=== PATIENT | male | born 1945 | race African-American/Black ===

== ENCOUNTER 2020-04-27 15:11 | Outpatient (CLI) | payer MEDICARE ==
--- NOTE | 2020-04-27 15:59 | RAD ---
EXAM: XR Lumbar Spine Min 4 View PROVIDED CLINICAL HISTORY: Low back pain COMPARISON: None FINDINGS: There are 5 nonrib-bearing lumbar-type vertebral bodies. Multilevel osteophytes are seen. There is mi ld narrowing of the L5-S1 intervertebral disc space. The vertebral body heights are within normal limits. No fracture or subluxation is seen involving the lumbar spine. Vascular calcifications and phleboliths overlie the pelvis. Radiopaque suture material is also seen o verlying the pelvis. 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
== END 2020-04-27 15:12 | disposition home or self-care (01) ==
LOC: RAD 15:11
PROVIDERS: ATTEND Internal Medicine Rheumatology
DX: M54.5 Low back pain (principal); M47.816 Spondylosis without myelopathy or radiculopathy, lumbar region
CPT/HCPCS: 72110

== ENCOUNTER 2021-07-15 12:02 | Inpatient (IN) | payer MEDICARE ==
[2021-07-15 12:54] LABS: #Eosinphils 0.3 thou/uL (0.0-0.7); #Lymphocytes 2.1 thou/uL (1.20-3.40); #Monocytes 0.7 thou/uL (0.11-0.59); #Neutrophils 4.5 thou/uL (1.40-6.50); %Basophils 0.6 % (0.0-1.0); %Eosinophils 3.4 % (0.0-10.0); %Lymphocytes 27.1 % (21.0-51.0); %Monocytes 9.3 % (0.0-10.0); %Neutrophils 59.6 % (42.0-75.0); Hemoglobin 14.1 g/dL (14.0-18.0); Mean Corpuscular HGB CONC 34.5 g/dL (32.0-36.0); Mean Corpuscular Hemoglobin 32.6 pg (27.0-31.0); Mean Corpuscular Volume 94.3 fL (78.0-98.0); Mean Platelet Volume 7.4 fL (7.4-10.4); Platelet Count 179 thou/uL (130-400); RBC Distribution Width 12.6 % (11.5-14.5); Red Blood Cell (RBC) Count 4.32 mill/uL (4.70-6.10); White Blood Cell (WBC) Count 7.6 thou/uL (4.8-10.8)
[2021-07-15 13:17] LABS: ALT (SGPT) 21 U/L (8-55); AST (SGOT) 27 U/L (5-34); Albumin 3.6 g/dL (3.4-4.8); Alkaline Phosphatase 37 U/L (40-110); Anion Gap 15 mmol/L (10-20); BUN (Urea Nitrogen) 25 mg/dL (8.4-25.7); Bilirubin, Total 0.4 mg/dL (0.2-1.2); Calc. Creatinine Clearance 0 mL/min (70-130); Calcium 9.2 mg/dL (7.8-10.44); Carbon Dioxide 24 mmol/L (23-31); Chloride 104 mmol/L (98-107); Globulin 3.3 g/dL (2.4-3.5); Glucose 84 mg/dL (83-110); Lipase 56 U/L (8-78); Magnesium 1.8 mg/dL (1.6-2.6); Potassium 4.7 mmol/L (3.5-5.1); Protein, Total 6.9 g/dL (5.8-8.1); Sodium 138 mmol/L (136-145)
[2021-07-15] MEDS ORDERED: Nitroglycerin 2% Ointment 1 INCH/1 GM Packet ONE (13:30)
[2021-07-15] MEDS ORDERED: Aspirin Chewable 81 MG TAB ONE (13:30)
[2021-07-15] MEDS ORDERED: Dextrose 5% in Water 1,000 ML IV PRN (14:06)
[2021-07-15] MEDS ORDERED: Dextrose 50% Abboject 50 ML SYRINGE SLOW IVP PRN (14:06)
[2021-07-15] MEDS ORDERED: Ondansetron PF 4 MG/2 ML Vial IVP PRN (14:06)
[2021-07-15] MEDS ORDERED: Calcium Carbonate 500 MG ChewTAB PO PRN (14:06)
[2021-07-15] MEDS ORDERED: Ondansetron ODT 4 MG TAB PO PRN (14:06)
[2021-07-15] MEDS ORDERED: Acetaminophen 325 MG TAB PO PRN ×2 (14:06→17:23)
[2021-07-15] MEDS ORDERED: HumaLOG 300 UNITS/3 ML VIAL SC PRN (14:06)
[2021-07-15] MEDS ORDERED: Acetaminophen 650 MG Suppository PR PRN (14:06)
[2021-07-15 14:58] LABS: Troponin I 0.014 ng/mL (< 0.028)
[2021-07-15] MEDS ORDERED: Heparin 5,000 UNITS/ML VIAL SC SCH (15:00)
[2021-07-15] MEDS ORDERED: Acetaminophen 325 MG TAB ONE (15:17)
[2021-07-15] MEDS ORDERED: HOLD HYPOGLYCEMIC MEDS AM OF CATH FS SCH (17:15)
[2021-07-15 17:16] LABS: SARS-CoV-2 NAA Rapid Test Not Detected (NotDetected)
[2021-07-15] MEDS ORDERED: Nitroglycerin 0.4 MG TAB 1 EACH SL PRN (17:20)
[2021-07-15] MEDS ORDERED: Zolpidem Tartrate 5 MG TAB PO PRN (17:22)
[2021-07-15] MEDS ORDERED: Milk Of Magnesia 30 ML UDCUP PO PRN (17:23)
[2021-07-15] MEDS ORDERED: Aspirin 81 mg Enteric Coated Tablet PO SCH (17:30)
[2021-07-15] MEDS ORDERED: Acetaminophen/Codeine 30-300mg Tablet PO PRN (17:32)
[2021-07-15] MEDS ORDERED: Nitroglycerin 0.4 MG TAB (25 Tab Bottle) SL PRN (17:35)
[2021-07-15] MEDS ORDERED: REPATHA 140 MG/ML SC SCH (17:45)
[2021-07-15 18:06] LABS: Troponin I 0.022 ng/mL (< 0.028)
[2021-07-15] MEDS: Sodium Chloride 0.9% 1,000 ML IV SCH (18:23)
[2021-07-15] MEDS ORDERED: HumuLIN 70/30 (300 UNITS/3 ML VIAL) SC SCH (21:00)
[2021-07-15] MEDS: HumuLIN 70/30 (300 UNITS/3 ML VIAL) SC SCH (21:26)
[2021-07-15] MEDS: Zolpidem Tartrate 5 MG TAB PO SCH (21:27)
[2021-07-15] MEDS: Docusate 100 MG CAP PO SCH (21:27)
[2021-07-15] MEDS ORDERED: DC ENOXAPARIN NIGHT BEFORE CATH FS SCH (22:00)
[2021-07-16] MEDS: Sodium Chloride 0.9% 1,000 ML IV SCH ×2 (02:30→15:12)
[2021-07-16 05:14] LABS: Anion Gap 12 mmol/L (10-20); BUN (Urea Nitrogen) 28 mg/dL (8.4-25.7); Calc. Creatinine Clearance 48 mL/min (70-130); Calcium 8.9 mg/dL (7.8-10.44); Carbon Dioxide 25 mmol/L (23-31); Cardiac Risk 4.3 (Less than 4.5); Chloride 104 mmol/L (98-107); Cholesterol 121 mg/dl (< 200 Desired); Glucose 82 mg/dL (83-110); HDL Cholesterol 28 mg/dL (>60 Neg Risk); LDL Cholesterol, Calculated 52 mg/dL; Potassium 4.6 mmol/L (3.5-5.1); Sodium 136 mmol/L (136-145); Triglycerides 203 mg/dL (Less than 150)
[2021-07-16] MEDS: hydrALAZINE 25 MG TAB PO SCH ×3 (05:14→17:12)
[2021-07-16] MEDS: Metoprolol Tartrate 100 MG TAB PO SCH ×2 (05:15→17:12)
[2021-07-16] MEDS: Citalopram 20 MG TAB PO SCH (05:16)
[2021-07-16] MEDS: Icosapent Ethyl 1 GM CAPSULE PO SCH ×2 (05:16→17:12)
[2021-07-16] MEDS: Aspirin 81 mg Enteric Coated Tablet PO SCH (05:16)
[2021-07-16] MEDS: Losartan 25 MG TAB PO SCH (05:16)
[2021-07-16] MEDS: Docusate 100 MG CAP PO SCH ×2 (05:16→21:06)
[2021-07-16] MEDS ORDERED: Lidocaine 1% (PF) 30 ML VIAL ONE (06:39)
[2021-07-16] MEDS ORDERED: Heparin 10,000 UNITS/ 10 ML VIAL ONE (06:43)
[2021-07-16] MEDS ORDERED: Fentanyl 100 MCG/2 ML VIAL ONE (07:06)
[2021-07-16] MEDS ORDERED: Midazolam HCl 2 mg/2 ml Vial ONE (07:06)
[2021-07-16] MEDS ORDERED: Protamine Sulfate 50 MG/5 ML VIAL ONE (07:41)
[2021-07-16] MEDS ORDERED: Nitroglycerin 4.9 GM Bottle ONE (07:42)
[2021-07-16] MEDS ORDERED: Sodium Chloride 0.9% 200 ML IV PRN (08:22)
[2021-07-16] MEDS ORDERED: Acetaminophen/Codeine 30-300mg Tablet PO PRN (08:22)
[2021-07-16] MEDS ORDERED: Nitroglycerin 0.4 MG TAB (25 Tab Bottle) SL PRN (08:22)
[2021-07-16] MEDS ORDERED: Sodium Chloride 0.9% 1,000 ML IV SCH (08:30)
[2021-07-16] MEDS: HumuLIN 70/30 (300 UNITS/3 ML VIAL) SC SCH ×2 (08:47→21:09)
[2021-07-16] MEDS ORDERED: VICTOZA SC SCH (09:00)
[2021-07-16] MEDS ORDERED: cloNIDine 0.2mg/24 Hour PATCH TD SCH (09:00)
[2021-07-16] MEDS ORDERED: Ergocalciferol 1.25 MG(50,000 UNITS) CAP PO SCH (09:00)
[2021-07-16] MEDS ORDERED: Iopamidol 370 76% 100 ML VIAL ONE (10:54)
[2021-07-16] MEDS: Acetaminophen/Codeine 30-300mg Tablet PO PRN ×3 (11:37→21:11)
[2021-07-16] MEDS ORDERED: cloNIDine 0.1 MG TAB PO SCH (14:00)
[2021-07-16] MEDS: Zolpidem Tartrate 5 MG TAB PO SCH (21:06)
[2021-07-17] MEDS: Acetaminophen/Codeine 30-300mg Tablet PO PRN ×5 (04:45→23:11)
[2021-07-17 05:26] LABS: Anion Gap 12 mmol/L (10-20); BUN (Urea Nitrogen) 26 mg/dL (8.4-25.7); Calc. Creatinine Clearance 52 mL/min (70-130); Carbon Dioxide 23 mmol/L (23-31); Chloride 104 mmol/L (98-107); Potassium 4.1 mmol/L (3.5-5.1); Sodium 135 mmol/L (136-145)
[2021-07-17 05:38] LABS: Glucose 41 mg/dL (83-110)
[2021-07-17] MEDS: Sodium Chloride 0.9% 1,000 ML IV SCH ×2 (05:52→14:43)
[2021-07-17] MEDS: Docusate 100 MG CAP PO SCH ×2 (09:36→22:05)
[2021-07-17] MEDS: hydrALAZINE 25 MG TAB PO SCH ×3 (09:37→17:01)
[2021-07-17] MEDS: Citalopram 20 MG TAB PO SCH (09:37)
[2021-07-17] MEDS: Losartan 25 MG TAB PO SCH (09:37)
[2021-07-17] MEDS: Icosapent Ethyl 1 GM CAPSULE PO SCH ×2 (09:38→17:01)
[2021-07-17] MEDS: Aspirin 81 mg Enteric Coated Tablet PO SCH (09:38)
[2021-07-17] MEDS: HumuLIN 70/30 (300 UNITS/3 ML VIAL) SC SCH ×2 (09:48→20:50)
[2021-07-17] MEDS: Metoprolol Tartrate 100 MG TAB PO SCH ×2 (10:36→17:01)
[2021-07-17] MEDS ORDERED: Communication Order-Pharmacy FS SCH (12:21)
[2021-07-17] MEDS ORDERED: Diazepam 5 MG TAB PO PRN (12:21)
[2021-07-17] MEDS ORDERED: Milk Of Magnesia 30 ML UDCUP PO PRN (12:45)
[2021-07-17] MEDS ORDERED: hydrALAZINE 20 MG/ML VIAL SLOW IVP PRN (21:32)
[2021-07-17] MEDS: Zolpidem Tartrate 5 MG TAB PO SCH (22:05)
[2021-07-18] MEDS: Sodium Chloride 0.9% 1,000 ML IV SCH (04:04)
[2021-07-18] MEDS: Acetaminophen/Codeine 30-300mg Tablet PO PRN (04:11)
[2021-07-18] MEDS: Metoprolol Tartrate 100 MG TAB PO SCH (05:15)
[2021-07-18] MEDS ORDERED: ceFAZolin 2 GM/Dextrose 50 ML 2 GM in Premix Bag 1 BAG IVPB SCH (06:00)
[2021-07-18] MEDS ORDERED: Bupivacaine PF 0.5% 30 ML VIAL ONE (07:55)
[2021-07-18] MEDS ORDERED: EPINEPHrine 1 MG/ML AMP ONE (07:55)
[2021-07-18] MEDS ORDERED: Dexamethasone 4 mg/ml Vial ONE (07:55)
[2021-07-18] MEDS ORDERED: Albumin 5% 500 ML ONE (07:55)
[2021-07-18] MEDS ORDERED: ceFAZolin 2 GM/DEX 5% 100 ML BAG ONE (08:54)
[2021-07-18] MEDS ORDERED: Fentanyl 250 MCG/5 ML VIAL ONE (09:49)
[2021-07-18] MEDS ORDERED: Midazolam HCl 5 mg/5 ml Vial ONE (09:49)
[2021-07-18] MEDS ORDERED: Heparin 10,000 UNITS/1 ML VIAL 30,000 UNITS in Sodium Chloride 0.9% 1,000 ML FS SCH (10:15)
[2021-07-18] MEDS ORDERED: Heparin 5,000 UNITS/ML VIAL ONE (10:46)
[2021-07-18] MEDS ORDERED: Calcium Chloride 1 GM/10 ML Abboject SYRINGE ONE (10:46)
[2021-07-18] MEDS ORDERED: Ondansetron PF 4 MG/2 ML Vial ONE (10:46)
[2021-07-18] MEDS ORDERED: Protamine Sulfate 250 MG/25 ML VIAL ONE (10:46)
[2021-07-18] MEDS ORDERED: Cardioplegic Soln 1,000 ML BAG ONE (10:46)
[2021-07-18] MEDS ORDERED: Papaverine 60 MG/2 ML VIAL ONE (10:46)
[2021-07-18] MEDS ORDERED: PROPOFOL 200 MG/20 ML VIAL ONE (10:46)
[2021-07-18] MEDS ORDERED: Glycopyrrolate 0.2 MG/ML 5 ML SYRINGE ONE (10:46)
[2021-07-18] MEDS ORDERED: Mannitol 12.5 GM/50 ML ONE (10:46)
[2021-07-18] MEDS ORDERED: Lidocaine 2% PF 100 mg/5 ml Syringe ONE (10:46)
[2021-07-18] MEDS ORDERED: Sodium Bicarb 50 MEQ/50 ML Abboject 8.4% SYRINGE ONE (10:46)
[2021-07-18] MEDS ORDERED: Thrombin 5000 UNITS/5 ML VIAL ONE (10:46)
[2021-07-18] MEDS ORDERED: Nitroglycerin 50 MG/250 ML BOT ONE (10:46)
[2021-07-18] MEDS ORDERED: Heparin 30,000 units/30 ml VIAL ONE (10:46)
[2021-07-18] MEDS ORDERED: Aminocaproic Acid 5 GM/20 ML VIAL ONE (10:46)
[2021-07-18] MEDS ORDERED: Potassium Chloride 60 MEQ/30 ML VIAL ONE (10:46)
[2021-07-18] MEDS ORDERED: Vecuronium 10 MG VIAL ONE (10:46)
[2021-07-18] MEDS ORDERED: Magnesium Sulfate 1 GM/2 ML VIAL ONE (10:46)
[2021-07-18] MEDS ORDERED: Rocuronium Bromide 10 MG/ML (10ML VIAL) ONE (10:46)
[2021-07-18] MEDS ORDERED: Insulin Regular 300 UNITS/3 ML VIAL ONE (13:35)
[2021-07-18] MEDS: Insulin Regular 300 UNITS/3 ML VIAL SC PRN (14:50)
[2021-07-18] MEDS ORDERED: Nitroglycerin 50 MG/250 ML BOT 250 ML ONE (14:55)
[2021-07-18] MEDS ORDERED: Ondansetron PF 4 MG/2 ML Vial IVP PRN (14:58)
[2021-07-18] MEDS ORDERED: Fentanyl 100 MCG/2 ML VIAL SLOW IVP PRN (14:58)
[2021-07-18] MEDS ORDERED: Bisacodyl 5 MG TAB PO PRN (14:58)
[2021-07-18] MEDS ORDERED: Mag-Al 1200 mg/1200 mg/30 ML UDCUP PO PRN (14:58)
[2021-07-18] MEDS ORDERED: Norepinephrine 8 MG/0.9% NS 250 ML IVPB PRN (14:58)
[2021-07-18] MEDS ORDERED: Promethazine HCl 25 MG/ML VIAL IM PRN (14:58)
[2021-07-18] MEDS ORDERED: Nitroglycerin 50 MG/250 ML BOT 250 ML IVPB PRN (14:58)
[2021-07-18] MEDS ORDERED: D5 1/2 NS w/20 mEq KCL 1,000 ML IV SCH (14:58)
[2021-07-18] MEDS ORDERED: traMADol HCl 50 MG TAB PO PRN (14:58)
[2021-07-18] MEDS ORDERED: Potassium Chloride 20 MEQ/100 ML PREMIX BAG IVPB PRN (14:58)
[2021-07-18] MEDS ORDERED: Hetastarch 6% 500 ML 500 ML IVPB PRN (14:58)
[2021-07-18] MEDS ORDERED: niCARdipine 25 MG in Sodium Chloride 0.9% 250 ML 240 ML IVPB PRN (14:58)
[2021-07-18] MEDS ORDERED: Post-Op Insulin Drip Protocol IVPB ONE (14:58)
[2021-07-18] MEDS ORDERED: Bisacodyl 10 MG SUPP PR PRN (14:58)
[2021-07-18] MEDS ORDERED: Guaifenesin DM 100-10/5 ML UDCUP PO PRN (14:58)
[2021-07-18 15:21] LABS: Base Excess (BEa) -1.9 mEq/L (-2.0 to +3.0); Calcium, Ionized (arterial) 1.09 mmol/L (1.12-1.30); Carboxyhemoglobin (COHb) 0.6 gm% (0.0-3.0); Hemoglobin (Hb) 12.8 g/dL (14.0-18.0); O2 Tension (PaO2), arterial 144.9 mmHg (> 70.0); Potassium - ABG Lab 4.69 mmol/L (3.70-5.30); pH, Arterial 7.34 (7.35-7.45)
[2021-07-18 15:22] LABS: Puncture Site Arterial Line
[2021-07-18 15:39] LABS: #Basophils 0.1 thou/uL (0.0-0.2); #Eosinphils 0.4 thou/uL (0.0-0.7); #Lymphocytes 2.4 thou/uL (1.20-3.40); #Monocytes 1.1 thou/uL (0.11-0.59); #Neutrophils 15.9 thou/uL (1.40-6.50); %Basophils 0.7 % (0.0-1.0); %Eosinophils 1.8 % (0.0-10.0); %Monocytes 5.6 % (0.0-10.0); %Neutrophils 79.9 % (42.0-75.0); Hemoglobin 11.7 g/dL (14.0-18.0); Mean Corpuscular HGB CONC 32.8 g/dL (32.0-36.0); Mean Corpuscular Hemoglobin 31.8 pg (27.0-31.0); Mean Platelet Volume 7.4 fL (7.4-10.4); Platelet Count 147 thou/uL (130-400); RBC Distribution Width 12.8 % (11.5-14.5); Red Blood Cell (RBC) Count 3.67 mill/uL (4.70-6.10); White Blood Cell (WBC) Count 19.9 thou/uL (4.8-10.8)
[2021-07-18 15:57] LABS: Anion Gap 10 mmol/L (10-20); BUN (Urea Nitrogen) 21 mg/dL (8.4-25.7); Calc. Creatinine Clearance 54 mL/min (70-130); Calcium 7.7 mg/dL (7.8-10.44); Carbon Dioxide 24 mmol/L (23-31); Chloride 107 mmol/L (98-107); Glucose 139 mg/dL (83-110); Potassium 4.8 mmol/L (3.5-5.1); Sodium 136 mmol/L (136-145)
[2021-07-18] MEDS ORDERED: Dextrose 5% in Water 1,000 ML IV PRN (16:00)
[2021-07-18] MEDS ORDERED: Magnesium 2 GM/50 ML 2 GM in Premix Bag 1 BAG IVPB SCH (16:00)
[2021-07-18] MEDS ORDERED: Dextrose 50% Abboject 50 ML SYRINGE SLOW IVP PRN (16:00)
[2021-07-18] MEDS ORDERED: HUMULIN R 100 UNITS in Sodium Chloride 0.9% 100 ML IVPB SCH (16:00)
[2021-07-18] MEDS ORDERED: Lantus 1000 UNITS/10 ML VIAL SC PRN (16:00)
[2021-07-18] MEDS ORDERED: Morphine 4 MG/ML VIAL SLOW IVP PRN (16:05)
[2021-07-18 16:11] LABS: INR-International Normal Ratio 1.3; Prothrombin Time 16.4 sec (12.0-14.7)
[2021-07-18] MEDS: ceFAZolin Sodium/D5W 2 GM in Premix Bag 1 BAG IVPB SCH (19:31)
[2021-07-18] MEDS ORDERED: Famotidine/PF 20 mg/2ml Vial SLOW IVP SCH (21:00)
[2021-07-18 21:12] LABS: Hemoglobin 12.4 g/dL (14.0-18.0)
[2021-07-18 21:16] LABS: Actual Bicarbonate (HCO3a) 21.9 mEq/L (22-28); Base Excess (BEa) -4.8 mEq/L (-2.0 to +3.0); CO2 Tension 46.5 mmHg (35.0-45.0); Calcium, Ionized (arterial) 1.09 mmol/L (1.12-1.30); Carboxyhemoglobin (COHb) 0.8 gm% (0.0-3.0); O2 Tension (PaO2), arterial 143.5 mmHg (> 70.0); Potassium - ABG Lab 4.63 mmol/L (3.70-5.30); pH, Arterial 7.29 (7.35-7.45)
[2021-07-18 21:17] LABS: Puncture Site Arterial Line
[2021-07-18 21:18] LABS: ALV-art Gradient 83.575 mmHg (0-20)
[2021-07-18] MEDS: Atorvastatin Calcium 40 MG TAB PO SCH (21:40)
[2021-07-18] MEDS: Fentanyl 100 MCG/2 ML VIAL SLOW IVP PRN (21:58)
[2021-07-18] MEDS: traMADol HCl 50 MG TAB PO PRN (23:08)
[2021-07-19] MEDS: Fentanyl 100 MCG/2 ML VIAL SLOW IVP PRN ×7 (00:07→17:22)
[2021-07-19] MEDS: ceFAZolin Sodium/D5W 2 GM in Premix Bag 1 BAG IVPB SCH ×2 (03:50→10:32)
[2021-07-19] MEDS: Acetaminophen 325 MG TAB PO PRN (04:14)
[2021-07-19 04:54] LABS: #Lymphocytes 0.7 thou/uL (1.20-3.40); #Monocytes 0.8 thou/uL (0.11-0.59); #Neutrophils 13.1 thou/uL (1.40-6.50); %Basophils 0.1 % (0.0-1.0); %Eosinophils 0.1 % (0.0-10.0); %Lymphocytes 4.9 % (21.0-51.0); %Monocytes 5.4 % (0.0-10.0); %Neutrophils 89.5 % (42.0-75.0); Hemoglobin 11.8 g/dL (14.0-18.0); Mean Corpuscular HGB CONC 33.2 g/dL (32.0-36.0); Mean Corpuscular Hemoglobin 32.2 pg (27.0-31.0); Mean Platelet Volume 8.1 fL (7.4-10.4); Platelet Count 177 thou/uL (130-400); Red Blood Cell (RBC) Count 3.66 mill/uL (4.70-6.10); White Blood Cell (WBC) Count 14.6 thou/uL (4.8-10.8)
[2021-07-19] MEDS: traMADol HCl 50 MG TAB PO PRN ×2 (07:48→13:03)
[2021-07-19] MEDS: Magnesium 2 GM/50 ML 2 GM in Premix Bag 1 BAG IVPB SCH (08:56)
[2021-07-19] MEDS: Citalopram 20 MG TAB PO SCH (08:56)
[2021-07-19] MEDS: Metoprolol Tartrate 50 MG TAB PO SCH ×2 (08:57→20:06)
[2021-07-19] MEDS: Aspirin 325 MG TAB PO SCH (09:00)
[2021-07-19] MEDS: Insulin Regular 300 UNITS/3 ML VIAL SC PRN ×2 (15:26→20:24)
[2021-07-19] MEDS: Acetaminophen/Codeine 30-300mg Tablet PO PRN ×2 (15:31→20:00)
[2021-07-19] MEDS: hydrALAZINE 25 MG TAB PO SCH (20:05)
[2021-07-19] MEDS: Atorvastatin Calcium 40 MG TAB PO SCH (20:05)
[2021-07-19] MEDS: hydrALAZINE 20 MG/ML VIAL SLOW IVP PRN (22:09)
[2021-07-20] MEDS: Acetaminophen/Codeine 30-300mg Tablet PO PRN ×5 (00:13→21:12)
[2021-07-20] MEDS: hydrALAZINE 20 MG/ML VIAL SLOW IVP PRN ×2 (03:40→10:16)
[2021-07-20 04:31] LABS: Anion Gap 13 mmol/L (10-20); BUN (Urea Nitrogen) 35 mg/dL (8.4-25.7); Calc. Creatinine Clearance 40 mL/min (70-130); Calcium 8.2 mg/dL (7.8-10.44); Carbon Dioxide 25 mmol/L (23-31); Chloride 100 mmol/L (98-107); Glucose 318 mg/dL (83-110); Potassium 4.5 mmol/L (3.5-5.1); Sodium 133 mmol/L (136-145)
[2021-07-20 05:13] LABS: Band 19 % (5-11); Hemoglobin 12.6 g/dL (14.0-18.0); Lymphocytes 6 % (21-51); MDiff Complete? YES; Mean Corpuscular HGB CONC 32.1 g/dL (32.0-36.0); Mean Corpuscular Hemoglobin 31.1 pg (27.0-31.0); Mean Platelet Volume 7.7 fL (7.4-10.4); Monocytes 5 % (0-10); Neutrophil 70 % (42-75); Platelet Count 191 thou/uL (130-400); RBC Distribution Width 12.6 % (11.5-14.5); Red Blood Cell (RBC) Count 4.06 mill/uL (4.70-6.10); White Blood Cell (WBC) Count 23.8 thou/uL (4.8-10.8)
[2021-07-20] MEDS: Insulin Regular 300 UNITS/3 ML VIAL SC PRN ×4 (05:48→21:18)
[2021-07-20] MEDS: hydrALAZINE 25 MG TAB PO SCH ×2 (08:05→21:11)
[2021-07-20] MEDS: Citalopram 20 MG TAB PO SCH (08:05)
[2021-07-20] MEDS: Magnesium 2 GM/50 ML 2 GM in Premix Bag 1 BAG IVPB SCH (09:31)
[2021-07-20] MEDS: Aspirin 325 MG TAB PO SCH (10:36)
[2021-07-20] MEDS: Metoprolol Tartrate 50 MG TAB PO SCH (10:37)
[2021-07-20] MEDS ORDERED: Bisacodyl 10 MG SUPP PR PRN (14:17)
[2021-07-20] MEDS ORDERED: Mineral Oil ENEMA PR PRN (14:17)
[2021-07-20] MEDS ORDERED: Nitroglycerin 0.4 MG TAB (25 Tab Bottle) SL PRN (14:17)
[2021-07-20] MEDS ORDERED: Guaifenesin DM 100-10/5 ML UDCUP PO PRN (14:17)
[2021-07-20] MEDS ORDERED: Mag-Al 1200 mg/1200 mg/30 ML UDCUP PO PRN (14:17)
[2021-07-20] MEDS ORDERED: diphenhydrAMINE 25 MG CAP PO PRN (14:17)
[2021-07-20] MEDS ORDERED: Milk Of Magnesia 30 ML UDCUP PO PRN (14:17)
[2021-07-20] MEDS ORDERED: Bisacodyl 5 MG TAB PO PRN (14:17)
[2021-07-20] MEDS ORDERED: Losartan 25 MG TAB PO SCH (14:45)
[2021-07-20] MEDS: Metoprolol Tartrate 100 MG TAB PO SCH (21:10)
[2021-07-20] MEDS: Zolpidem Tartrate 5 MG TAB PO PRN (21:10)
[2021-07-20] MEDS: Atorvastatin Calcium 40 MG TAB PO SCH (21:12)
[2021-07-21] MEDS: Diltiazem HCl 125 MG, Admixture Fee 1 EACH in Sodium Chloride 0.9% 100 ML IVPB SCH (04:38)
[2021-07-21 05:23] LABS: Anion Gap 13 mmol/L (10-20); BUN (Urea Nitrogen) 51 mg/dL (8.4-25.7); Calc. Creatinine Clearance 31 mL/min (70-130); Calcium 8.3 mg/dL (7.8-10.44); Carbon Dioxide 22 mmol/L (23-31); Chloride 104 mmol/L (98-107); Glucose 223 mg/dL (83-110); Potassium 4.1 mmol/L (3.5-5.1); Sodium 135 mmol/L (136-145)
[2021-07-21] MEDS: Insulin Regular 300 UNITS/3 ML VIAL SC PRN ×3 (06:11→18:42)
[2021-07-21] MEDS ORDERED: Losartan 25 MG TAB PO SCH (09:00)
[2021-07-21] MEDS ORDERED: Furosemide 40 MG TAB PO SCH (09:00)
[2021-07-21] MEDS: hydrALAZINE 25 MG TAB PO SCH ×2 (10:14→21:43)
[2021-07-21] MEDS: Metoprolol Tartrate 100 MG TAB PO SCH ×2 (10:14→21:43)
[2021-07-21] MEDS: Aspirin 325 MG TAB PO SCH (10:14)
[2021-07-21] MEDS: Citalopram 20 MG TAB PO SCH (10:15)
[2021-07-21] MEDS: HumuLIN 70/30 (300 UNITS/3 ML VIAL) SC SCH ×2 (17:23→21:50)
[2021-07-21] MEDS: Atorvastatin Calcium 40 MG TAB PO SCH (21:43)
[2021-07-21] MEDS: Acetaminophen/Codeine 30-300mg Tablet PO PRN (21:46)
[2021-07-21] MEDS: Zolpidem Tartrate 5 MG TAB PO PRN (23:17)
[2021-07-22] MEDS: Diltiazem HCl 125 MG, Admixture Fee 1 EACH in Sodium Chloride 0.9% 100 ML IVPB SCH (00:05)
[2021-07-22] MEDS: Insulin Regular 300 UNITS/3 ML VIAL SC PRN ×2 (06:31→11:47)
[2021-07-22 08:07] LABS: Anion Gap 15 mmol/L (10-20); BUN (Urea Nitrogen) 77 mg/dL (8.4-25.7); Calc. Creatinine Clearance 25 mL/min (70-130); Calcium 8.2 mg/dL (7.8-10.44); Carbon Dioxide 20 mmol/L (23-31); Chloride 105 mmol/L (98-107); Glucose 245 mg/dL (83-110); Potassium 4.2 mmol/L (3.5-5.1); Sodium 136 mmol/L (136-145)
[2021-07-22] MEDS: Acetaminophen/Codeine 30-300mg Tablet PO PRN (08:35)
[2021-07-22] MEDS: Metoprolol Tartrate 100 MG TAB PO SCH ×2 (08:36→21:00)
[2021-07-22] MEDS: Citalopram 20 MG TAB PO SCH (08:36)
[2021-07-22] MEDS: Aspirin 325 MG TAB PO SCH (08:36)
[2021-07-22] MEDS: HumuLIN 70/30 (300 UNITS/3 ML VIAL) SC SCH ×2 (08:36→20:59)
[2021-07-22] MEDS: hydrALAZINE 25 MG TAB PO SCH ×2 (08:36→21:00)
[2021-07-22] MEDS ORDERED: Dronedarone HCl 400 MG TAB PO SCH (09:45)
[2021-07-22] MEDS: Dronedarone HCl 400 MG TAB PO SCH (17:31)
[2021-07-22] MEDS: Atorvastatin Calcium 40 MG TAB PO SCH (20:58)
[2021-07-22] MEDS: Acetaminophen 325 MG TAB PO PRN (21:01)
[2021-07-23 05:26] LABS: Anion Gap 13 mmol/L (10-20); BUN (Urea Nitrogen) 81 mg/dL (8.4-25.7); Calc. Creatinine Clearance 27 mL/min (70-130); Calcium 7.6 mg/dL (7.8-10.44); Carbon Dioxide 19 mmol/L (23-31); Chloride 107 mmol/L (98-107); Glucose 162 mg/dL (83-110); Sodium 135 mmol/L (136-145)
[2021-07-23] MEDS: HumuLIN 70/30 (300 UNITS/3 ML VIAL) SC SCH ×2 (08:15→21:02)
[2021-07-23] MEDS: Citalopram 20 MG TAB PO SCH (08:16)
[2021-07-23] MEDS: hydrALAZINE 25 MG TAB PO SCH ×2 (08:16→21:03)
[2021-07-23] MEDS: Dronedarone HCl 400 MG TAB PO SCH ×2 (08:16→17:10)
[2021-07-23] MEDS: Metoprolol Tartrate 100 MG TAB PO SCH ×2 (08:16→21:03)
[2021-07-23] MEDS: Aspirin 325 MG TAB PO SCH (08:16)
[2021-07-23] MEDS: cloNIDine 0.2mg/24 Hour PATCH TD SCH (08:16)
[2021-07-23] MEDS: Acetaminophen/Codeine 30-300mg Tablet PO PRN ×2 (08:17→21:07)
[2021-07-23] MEDS ORDERED: Enoxaparin Sodium 100 MG/ML SYRINGE SC SCH (10:00)
[2021-07-23] MEDS ORDERED: Enoxaparin Sodium 120 MG/0.8 ML SYRINGE SC SCH (10:00)
[2021-07-23] MEDS: Insulin Regular 300 UNITS/3 ML VIAL SC PRN ×2 (11:28→17:10)
[2021-07-23 11:36] LABS: SARS-CoV-2 PCR by NAA Not Detected (NotDetected)
[2021-07-23] MEDS: Atorvastatin Calcium 40 MG TAB PO SCH (21:02)
[2021-07-24] MEDS: hydrALAZINE 20 MG/ML VIAL SLOW IVP PRN (05:40)
[2021-07-24] MEDS: Dronedarone HCl 400 MG TAB PO SCH ×2 (08:10→16:27)
[2021-07-24] MEDS: Metoprolol Tartrate 100 MG TAB PO SCH ×2 (08:10→20:51)
[2021-07-24] MEDS: Citalopram 20 MG TAB PO SCH (08:10)
[2021-07-24] MEDS: HumuLIN 70/30 (300 UNITS/3 ML VIAL) SC SCH ×2 (08:10→20:52)
[2021-07-24] MEDS: Aspirin 325 MG TAB PO SCH (08:10)
[2021-07-24] MEDS: hydrALAZINE 25 MG TAB PO SCH ×2 (08:10→20:51)
[2021-07-24] MEDS: Acetaminophen/Codeine 30-300mg Tablet PO PRN ×3 (08:11→20:51)
[2021-07-24] MEDS ORDERED: Enoxaparin Sodium 120 MG/0.8 ML SYRINGE SC SCH (09:00)
[2021-07-24] MEDS ORDERED: hydrALAZINE 20 MG/ML VIAL SLOW IVP PRN (09:18)
[2021-07-24] MEDS ORDERED: hydrALAZINE 20 MG/ML VIAL SLOW IVP SCH (09:30)
[2021-07-24] MEDS: Insulin Regular 300 UNITS/3 ML VIAL SC PRN ×2 (11:55→16:33)
[2021-07-24 12:08] LABS: Anion Gap 12 mmol/L (10-20); BUN (Urea Nitrogen) 74 mg/dL (8.4-25.7); Calc. Creatinine Clearance 34 mL/min (70-130); Calcium 7.4 mg/dL (7.8-10.44); Carbon Dioxide 22 mmol/L (23-31); Chloride 109 mmol/L (98-107); Glucose 229 mg/dL (83-110); Potassium 4.1 mmol/L (3.5-5.1); Sodium 139 mmol/L (136-145)
[2021-07-24] MEDS ORDERED: Diltiazem HCl 125 MG, Admixture Fee 1 EACH in Sodium Chloride 0.9% 100 ML IVPB SCH (13:30)
[2021-07-24 15:58] VITALS: BMI 39.9
[2021-07-24] MEDS: Atorvastatin Calcium 40 MG TAB PO SCH (20:51)
[2021-07-25] MEDS: Acetaminophen/Codeine 30-300mg Tablet PO PRN ×4 (03:25→20:22)
[2021-07-25 05:25] LABS: Anion Gap 11 mmol/L (10-20); BUN (Urea Nitrogen) 64 mg/dL (8.4-25.7); Calc. Creatinine Clearance 40 mL/min (70-130); Calcium 7.3 mg/dL (7.8-10.44); Carbon Dioxide 23 mmol/L (23-31); Chloride 110 mmol/L (98-107); Glucose 159 mg/dL (83-110); Sodium 140 mmol/L (136-145)
[2021-07-25] MEDS ORDERED: Apixaban 5 MG TAB PO SCH (09:00)
[2021-07-25] MEDS: Aspirin 81 mg Enteric Coated Tablet PO SCH (09:36)
[2021-07-25] MEDS: HumuLIN 70/30 (300 UNITS/3 ML VIAL) SC SCH ×2 (09:36→20:23)
[2021-07-25] MEDS: Dronedarone HCl 400 MG TAB PO SCH ×2 (09:37→15:53)
[2021-07-25] MEDS: Metoprolol Tartrate 100 MG TAB PO SCH ×2 (09:37→20:23)
[2021-07-25] MEDS: hydrALAZINE 25 MG TAB PO SCH ×2 (09:37→20:23)
[2021-07-25] MEDS: Citalopram 20 MG TAB PO SCH (09:37)
[2021-07-25] MEDS: Insulin Regular 300 UNITS/3 ML VIAL SC PRN ×3 (11:05→20:40)
[2021-07-25] MEDS: Atorvastatin Calcium 40 MG TAB PO SCH (20:23)
[2021-07-26] MEDS: Acetaminophen/Codeine 30-300mg Tablet PO PRN ×4 (03:14→21:04)
[2021-07-26 04:45] LABS: #Eosinphils 0.7 thou/uL (0.0-0.7); #Lymphocytes 1.3 thou/uL (1.20-3.40); #Monocytes 1.8 thou/uL (0.11-0.59); %Basophils 0.1 % (0.0-1.0); %Eosinophils 3.6 % (0.0-10.0); %Monocytes 9.7 % (0.0-10.0); %Neutrophils 79.6 % (42.0-75.0); Mean Corpuscular HGB CONC 32.4 g/dL (32.0-36.0); Mean Corpuscular Hemoglobin 32.1 pg (27.0-31.0); Mean Corpuscular Volume 99.1 fL (78.0-98.0); Mean Platelet Volume 6.9 fL (7.4-10.4); Platelet Count 306 thou/uL (130-400); RBC Distribution Width 12.7 % (11.5-14.5); Red Blood Cell (RBC) Count 3.41 mill/uL (4.70-6.10); White Blood Cell (WBC) Count 18.9 thou/uL (4.8-10.8)
[2021-07-26 04:58] LABS: Anion Gap 13 mmol/L (10-20); BUN (Urea Nitrogen) 56 mg/dL (8.4-25.7); Calc. Creatinine Clearance 43 mL/min (70-130); Calcium 7.5 mg/dL (7.8-10.44); Carbon Dioxide 22 mmol/L (23-31); Chloride 111 mmol/L (98-107); Glucose 121 mg/dL (83-110); Potassium 4.5 mmol/L (3.5-5.1); Sodium 141 mmol/L (136-145)
[2021-07-26] MEDS: Insulin Regular 300 UNITS/3 ML VIAL SC PRN ×4 (05:30→21:06)
[2021-07-26] MEDS: Dronedarone HCl 400 MG TAB PO SCH ×2 (09:24→16:35)
[2021-07-26] MEDS: hydrALAZINE 25 MG TAB PO SCH ×3 (09:24→21:02)
[2021-07-26] MEDS: Citalopram 20 MG TAB PO SCH (09:24)
[2021-07-26] MEDS: Metoprolol Tartrate 100 MG TAB PO SCH ×2 (09:24→21:05)
[2021-07-26] MEDS: Aspirin 81 mg Enteric Coated Tablet PO SCH (09:24)
[2021-07-26] MEDS: HumuLIN 70/30 (300 UNITS/3 ML VIAL) SC SCH ×2 (09:24→21:07)
[2021-07-26] MEDS: Polyethylene Glycol 3350 17 GM Packet PO SCH (09:25)
[2021-07-26] MEDS ORDERED: hydrALAZINE 25 MG TAB PO SCH (10:45)
[2021-07-26] MEDS: Atorvastatin Calcium 40 MG TAB PO SCH (21:05)
[2021-07-27 05:06] LABS: Band 9 % (5-11); Hemoglobin 10.6 g/dL (14.0-18.0); Hypochromia SLIGHT = 6-15 cells (100X) (0-5/hpf); Lymphocytes 19 % (21-51); MDiff Complete? YES; Mean Corpuscular Hemoglobin 32.2 pg (27.0-31.0); Mean Corpuscular Volume 97.5 fL (78.0-98.0); Mean Platelet Volume 6.9 fL (7.4-10.4); Monocytes 6 % (0-10); Neutrophil 66 % (42-75); Platelet Count 339 thou/uL (130-400); Platelet Morphology Comment Appears Adequate; RBC Distribution Width 12.5 % (11.5-14.5); White Blood Cell (WBC) Count 24.1 thou/uL (4.8-10.8)
[2021-07-27 05:08] LABS: Anion Gap 15 mmol/L (10-20); BUN (Urea Nitrogen) 48 mg/dL (8.4-25.7); Calc. Creatinine Clearance 49 mL/min (70-130); Calcium 7.7 mg/dL (7.8-10.44); Carbon Dioxide 20 mmol/L (23-31); Chloride 109 mmol/L (98-107); Glucose 138 mg/dL (83-110); Potassium 4.6 mmol/L (3.5-5.1); Sodium 139 mmol/L (136-145)
[2021-07-27] MEDS: Acetaminophen/Codeine 30-300mg Tablet PO PRN ×4 (06:00→21:10)
[2021-07-27] MEDS: Polyethylene Glycol 3350 17 GM Packet PO SCH (10:03)
[2021-07-27] MEDS: Aspirin 81 mg Enteric Coated Tablet PO SCH (10:03)
[2021-07-27] MEDS: Dronedarone HCl 400 MG TAB PO SCH ×2 (10:03→16:03)
[2021-07-27] MEDS: Metoprolol Tartrate 100 MG TAB PO SCH ×2 (10:04→21:09)
[2021-07-27] MEDS: Citalopram 20 MG TAB PO SCH (10:04)
[2021-07-27] MEDS: hydrALAZINE 25 MG TAB PO SCH ×3 (10:04→21:08)
[2021-07-27] MEDS: Oxybutynin 5 MG TAB PO SCH ×2 (10:04→21:09)
[2021-07-27] MEDS: HumuLIN 70/30 (300 UNITS/3 ML VIAL) SC SCH ×2 (10:05→21:09)
[2021-07-27] MEDS ORDERED: hydrALAZINE 25 MG TAB PO SCH (10:45)
[2021-07-27] MEDS: Insulin Regular 300 UNITS/3 ML VIAL SC PRN ×2 (12:55→18:17)
[2021-07-27] MEDS ORDERED: Piperacillin/Tazobactam 3.375 GM in Sodium Chloride 0.9% 100 ML IVPB SCH ×2 (13:45→18:00)
[2021-07-27] MEDS: Piperacillin/Tazobactam 3.375 GM in Sodium Chloride 0.9% 100 ML IVPB SCH (17:22)
[2021-07-27] MEDS: Zolpidem Tartrate 5 MG TAB PO PRN (21:08)
[2021-07-27] MEDS: Atorvastatin Calcium 40 MG TAB PO SCH (21:09)
[2021-07-28] MEDS: Piperacillin/Tazobactam 3.375 GM in Sodium Chloride 0.9% 100 ML IVPB SCH (02:53)
[2021-07-28] MEDS: Acetaminophen/Codeine 30-300mg Tablet PO PRN ×3 (03:06→18:27)
[2021-07-28 04:25] LABS: #Eosinphils 0.3 thou/uL (0.0-0.7); #Lymphocytes 1.4 thou/uL (1.20-3.40); #Monocytes 1.1 thou/uL (0.11-0.59); #Neutrophils 20.2 thou/uL (1.40-6.50); %Eosinophils 1.5 % (0.0-10.0); %Monocytes 4.8 % (0.0-10.0); %Neutrophils 87.8 % (42.0-75.0); Hemoglobin 9.7 g/dL (14.0-18.0); Mean Corpuscular HGB CONC 32.9 g/dL (32.0-36.0); Mean Corpuscular Hemoglobin 31.8 pg (27.0-31.0); Mean Corpuscular Volume 96.6 fL (78.0-98.0); Mean Platelet Volume 6.7 fL (7.4-10.4); Platelet Count 349 thou/uL (130-400); RBC Distribution Width 12.4 % (11.5-14.5); Red Blood Cell (RBC) Count 3.06 mill/uL (4.70-6.10)
[2021-07-28] MEDS ORDERED: Ciprofloxacin 500 MG TAB PO SCH (09:30)
[2021-07-28] MEDS: HumuLIN 70/30 (300 UNITS/3 ML VIAL) SC SCH ×2 (09:32→21:34)
[2021-07-28] MEDS: hydrALAZINE 25 MG TAB PO SCH ×3 (09:39→21:33)
[2021-07-28] MEDS: Aspirin 81 mg Enteric Coated Tablet PO SCH (09:39)
[2021-07-28] MEDS: Oxybutynin 5 MG TAB PO SCH ×2 (09:39→21:33)
[2021-07-28] MEDS: Citalopram 20 MG TAB PO SCH (09:39)
[2021-07-28] MEDS: Polyethylene Glycol 3350 17 GM Packet PO SCH (09:40)
[2021-07-28] MEDS: Metoprolol Tartrate 100 MG TAB PO SCH ×2 (09:40→21:33)
[2021-07-28] MEDS: Dronedarone HCl 400 MG TAB PO SCH ×2 (09:40→18:28)
[2021-07-28] MEDS: Atorvastatin Calcium 40 MG TAB PO SCH (21:33)
[2021-07-28] MEDS: Ciprofloxacin 500 MG TAB PO SCH (21:33)
[2021-07-28] MEDS: Zolpidem Tartrate 5 MG TAB PO PRN (21:37)
[2021-07-29] MEDS: Acetaminophen/Codeine 30-300mg Tablet PO PRN ×4 (04:12→20:56)
[2021-07-29 05:03] LABS: Anion Gap 13 mmol/L (10-20); BUN (Urea Nitrogen) 51 mg/dL (8.4-25.7); Calc. Creatinine Clearance 41 mL/min (70-130); Calcium 7.3 mg/dL (7.8-10.44); Carbon Dioxide 22 mmol/L (23-31); Chloride 108 mmol/L (98-107); Glucose 113 mg/dL (83-110); Potassium 3.8 mmol/L (3.5-5.1); Sodium 139 mmol/L (136-145)
[2021-07-29] MEDS: Ciprofloxacin 500 MG TAB PO SCH ×2 (05:43→20:47)
[2021-07-29] MEDS: Polyethylene Glycol 3350 17 GM Packet PO SCH ×2 (09:05→12:14)
[2021-07-29] MEDS: hydrALAZINE 25 MG TAB PO SCH ×3 (09:07→20:47)
[2021-07-29] MEDS: Citalopram 20 MG TAB PO SCH (09:07)
[2021-07-29] MEDS: Dronedarone HCl 400 MG TAB PO SCH ×2 (09:07→18:32)
[2021-07-29] MEDS: Aspirin 81 mg Enteric Coated Tablet PO SCH (09:07)
[2021-07-29] MEDS: Metoprolol Tartrate 100 MG TAB PO SCH ×2 (09:07→20:47)
[2021-07-29] MEDS: Oxybutynin 5 MG TAB PO SCH ×2 (09:07→20:47)
[2021-07-29 10:37] LABS: Hemoglobin 10.1 g/dL (14.0-18.0); Mean Corpuscular HGB CONC 32.4 g/dL (32.0-36.0); Mean Corpuscular Hemoglobin 31.2 pg (27.0-31.0); Mean Corpuscular Volume 96.5 fL (78.0-98.0); Mean Platelet Volume 7.1 fL (7.4-10.4); Platelet Count 395 thou/uL (130-400); RBC Distribution Width 12.3 % (11.5-14.5); Red Blood Cell (RBC) Count 3.22 mill/uL (4.70-6.10)
[2021-07-29 11:18] LABS: Analyzer IN Cardio OR; CO2 Tension 39.4 mmHg (35.0-45.0); Calcium, Ionized (arterial) 1.06 mmol/L (1.12-1.30); Carboxyhemoglobin (COHb) 0.5 gm% (0.0-3.0); Hemoglobin (Hb) 11.7 g/dL (14.0-18.0); O2 Tension (PaO2), arterial 128.5 mmHg (> 70.0); Potassium - ABG Lab 4.88 mmol/L (3.70-5.30); pH, Arterial 7.37 (7.35-7.45)
[2021-07-29 11:18] LABS: Actual Bicarbonate (HCO3a) 23.2 mEq/L (22-28); Base Excess (BEa) -2.1 mEq/L (-2.0 to +3.0); CO2 Tension 41.6 mmHg (35.0-45.0); Carboxyhemoglobin (COHb) 0.1 gm% (0.0-3.0); Hemoglobin (Hb) 9.5 g/dL (14.0-18.0); pH, Arterial 7.36 (7.35-7.45)
[2021-07-29 11:19] LABS: Analyzer IN Cardio OR; Calcium, Ionized (arterial) 1.07 mmol/L (1.12-1.30); Potassium - ABG Lab 5.37 mmol/L (3.70-5.30)
[2021-07-29 11:19] LABS: Actual Bicarbonate (HCO3a) 25.9 mEq/L (22-28); Analyzer IN Cardio OR; Base Excess (BEa) 0.7 mEq/L (-2.0 to +3.0); Calcium, Ionized (arterial) 0.94 mmol/L (1.12-1.30); Carboxyhemoglobin (COHb) 0.4 gm% (0.0-3.0); Hemoglobin (Hb) 9.8 g/dL (14.0-18.0); O2 Tension (PaO2), arterial 407.7 mmHg (> 70.0); Potassium - ABG Lab 5.13 mmol/L (3.70-5.30); pH, Arterial 7.39 (7.35-7.45)
[2021-07-29 11:19] LABS: Actual Bicarbonate (HCO3a) 23.1 mEq/L (22-28); Analyzer IN Cardio OR; Base Excess (BEa) -2.7 mEq/L (-2.0 to +3.0); CO2 Tension 44.3 mmHg (35.0-45.0); Calcium, Ionized (arterial) 0.88 mmol/L (1.12-1.30); Carboxyhemoglobin (COHb) 0.3 gm% (0.0-3.0); O2 Tension (PaO2), arterial 380.5 mmHg (> 70.0); Potassium - ABG Lab 4.55 mmol/L (3.70-5.30); pH, Arterial 7.34 (7.35-7.45)
[2021-07-29 11:20] LABS: Analyzer IN Cardio OR; Base Excess (BEa) -2.9 mEq/L (-2.0 to +3.0); CO2 Tension 49.8 mmHg (35.0-45.0); Calcium, Ionized (arterial) 1.08 mmol/L (1.12-1.30); Carboxyhemoglobin (COHb) 1.2 gm% (0.0-3.0); Hemoglobin (Hb) 14.2 g/dL (14.0-18.0); O2 Tension (PaO2), arterial 483.5 mmHg (> 70.0); Potassium - ABG Lab 4.48 mmol/L (3.70-5.30)
[2021-07-29 11:20] LABS: Actual Bicarbonate (HCO3a) 23.9 mEq/L (22-28); Analyzer IN Cardio OR; Base Excess (BEa) -1.9 mEq/L (-2.0 to +3.0); CO2 Tension 44.5 mmHg (35.0-45.0); Calcium, Ionized (arterial) 1.01 mmol/L (1.12-1.30); Hemoglobin (Hb) 12.8 g/dL (14.0-18.0); O2 Tension (PaO2), arterial 227.2 mmHg (> 70.0); Potassium - ABG Lab 4.36 mmol/L (3.70-5.30); pH, Arterial 7.35 (7.35-7.45)
[2021-07-29 11:21] LABS: Puncture Site Arterial Line
[2021-07-29 11:22] LABS: Puncture Site Arterial Line
[2021-07-29 11:23] LABS: Puncture Site Arterial Line
[2021-07-29 11:23] LABS: Puncture Site Arterial Line
[2021-07-29 11:24] LABS: O2 Tension (PaO2), arterial 510.9 mmHg (> 70.0); Puncture Site Arterial Line
[2021-07-29 11:25] LABS: Puncture Site Arterial Line
[2021-07-29 11:37] LABS: #Eosinphils 0.6 thou/uL (0.0-0.7); #Lymphocytes 1.6 thou/uL (1.20-3.40); #Neutrophils 17.8 thou/uL (1.40-6.50); %Basophils 0.1 % (0.0-1.0); %Eosinophils 2.8 % (0.0-10.0); %Lymphocytes 7.6 % (21.0-51.0); %Monocytes 4.7 % (0.0-10.0); %Neutrophils 84.8 % (42.0-75.0); Band 9 % (5-11); Eosinophils 1 % (0-10); Lymphocytes 5 % (21-51); MDiff Complete? YES; Monocytes 4 % (0-10); Neutrophil 81 % (42-75); Platelet Morphology Comment Appears Adequate; Polychromasia SLIGHT = 2-3 cells (100X) (0-2/hpf)
[2021-07-29] MEDS: HumuLIN 70/30 (300 UNITS/3 ML VIAL) SC SCH ×2 (12:13→20:46)
[2021-07-29] MEDS: Atorvastatin Calcium 40 MG TAB PO SCH (20:47)
[2021-07-29] MEDS: Zolpidem Tartrate 5 MG TAB PO PRN (20:47)
[2021-07-30] MEDS: Acetaminophen/Codeine 30-300mg Tablet PO PRN ×3 (03:53→14:46)
[2021-07-30 05:24] LABS: Anion Gap 12 mmol/L (10-20); BUN (Urea Nitrogen) 41 mg/dL (8.4-25.7); Calc. Creatinine Clearance 51 mL/min (70-130); Calcium 6.8 mg/dL (7.8-10.44); Carbon Dioxide 21 mmol/L (23-31); Chloride 113 mmol/L (98-107); Glucose 144 mg/dL (83-110); Potassium 3.7 mmol/L (3.5-5.1); Sodium 142 mmol/L (136-145)
[2021-07-30 05:37] LABS: Band 3 % (5-11); Eosinophils 6 % (0-10); Hemoglobin 8.6 g/dL (14.0-18.0); Lymphocytes 5 % (21-51); MDiff Complete? YES; Mean Corpuscular HGB CONC 33.4 g/dL (32.0-36.0); Mean Corpuscular Hemoglobin 32.3 pg (27.0-31.0); Mean Corpuscular Volume 96.6 fL (78.0-98.0); Mean Platelet Volume 7.4 fL (7.4-10.4); Monocytes 4 % (0-10); Neutrophil 82 % (42-75); Nucleated RBC 1 % (0); Platelet Count 320 thou/uL (130-400); Platelet Morphology Comment Appears Adequate; RBC Distribution Width 12.3 % (11.5-14.5); RBC Morphology Normal; Red Blood Cell (RBC) Count 2.65 mill/uL (4.70-6.10); White Blood Cell (WBC) Count 16.5 thou/uL (4.8-10.8)
[2021-07-30] MEDS: Ciprofloxacin 500 MG TAB PO SCH (06:17)
[2021-07-30] MEDS: Dronedarone HCl 400 MG TAB PO SCH ×2 (09:54→17:26)
[2021-07-30] MEDS: Oxybutynin 5 MG TAB PO SCH (09:55)
[2021-07-30] MEDS: Citalopram 20 MG TAB PO SCH (09:55)
[2021-07-30] MEDS: hydrALAZINE 25 MG TAB PO SCH ×2 (09:55→14:48)
[2021-07-30] MEDS: Metoprolol Tartrate 100 MG TAB PO SCH (09:55)
[2021-07-30] MEDS: Aspirin 81 mg Enteric Coated Tablet PO SCH (09:58)
[2021-07-30] MEDS: Polyethylene Glycol 3350 17 GM Packet PO SCH (09:59)
[2021-07-30] MEDS: cloNIDine 0.2mg/24 Hour PATCH TD SCH (10:00)
[2021-07-30] MEDS: HumuLIN 70/30 (300 UNITS/3 ML VIAL) SC SCH (10:01)
[2021-07-30] MEDS: Insulin Regular 300 UNITS/3 ML VIAL SC PRN ×2 (13:44→18:28)
[2021-07-30 16:23] VITALS: TEMP 97.9
[2021-07-30 16:44] VITALS: BP 151/66
[2021-07-30 22:55] LABS: SARS-CoV-2 PCR by NAA Not Detected (NotDetected)
== END 2021-07-30 19:30 | DRG 234 ==
LOC: ERS 12:02 → ERHOLD 13:41 → 2NO 16:35 → CCU 07-18 09:00 → 2NO 07-20 15:46
PROVIDERS: ADMIT Internal Medicine Cardiovascular Disease; ATTEND Internal Medicine Cardiovascular Disease
PROC: 4A023N7 Measurement of Cardiac Sampling and Pressure, Left Heart, Percutaneous Approach (ICD-10-PCS; 2021-07-16)
PROC: B2111ZZ Fluoroscopy of Multiple Coronary Arteries using Low Osmolar Contrast (ICD-10-PCS; 2021-07-16)
PROC: 021209W Bypass Coronary Artery, Three Arteries from Aorta with Autologous Venous Tissue, Open Approach (ICD-10-PCS; principal; 2021-07-18)
PROC: 02100Z9 Bypass Coronary Artery, One Artery from Left Internal Mammary, Open Approach (ICD-10-PCS; 2021-07-18)
PROC: 06BQ4ZZ Excision of Left Saphenous Vein, Percutaneous Endoscopic Approach (ICD-10-PCS; 2021-07-18)
PROC: 5A1221Z Performance of Cardiac Output, Continuous (ICD-10-PCS; 2021-07-18)
DX: I25.10 Atherosclerotic heart disease of native coronary artery without angina pectoris (principal); Z68.41 Body mass index [BMI] 40.0-44.9, adult; N17.9 Acute kidney failure, unspecified; I48.92 Unspecified atrial flutter; K92.2 Gastrointestinal hemorrhage, unspecified; E87.2 Acidosis; Z20.822 Contact with and (suspected) exposure to COVID-19; E78.5 Hyperlipidemia, unspecified; E11.22 Type 2 diabetes mellitus with diabetic chronic kidney disease; E66.01 Morbid (severe) obesity due to excess calories; I12.9 Hypertensive chronic kidney disease with stage 1 through stage 4 chronic kidney disease, or unspecified chronic kidney disease; N18.30 Chronic kidney disease, stage 3 unspecified; E66.9 Obesity, unspecified; R31.9 Hematuria, unspecified; E83.51 Hypocalcemia; I48.0 Paroxysmal atrial fibrillation; R33.9 Retention of urine, unspecified; Z90.49 Acquired absence of other specified parts of digestive tract; Z79.82 Long term (current) use of aspirin; Z79.4 Long term (current) use of insulin; Z79.899 Other long term (current) drug therapy
CPT/HCPCS: 36415; 36416; 71045; 74018; 74176; 80048; 80053; 80061; 82550; 82805; 82947; 83690; 83735; 83880; 84484; 85025; 85347; 85610; 85730; 86850; 86900; 86901; 87077; 87086; 87186; 93005; 93010; 93454; 93798; 94002; 94640; 94760; 99152; C1713; J0171; J0360; J1100; J1642; J1644; J1650; J1815; J2001; J2150; J2250; J2405; J2440; J2543; J2704; J2720; J3010; J3370; J3475; J3480; J3490; J7050; J7620; P9045; Q9967; S0017; S0020; S0028; U0002; U0003; U0005

== ENCOUNTER 2021-08-27 12:06 | Inpatient (IN) | payer MEDICARE ==
[2021-08-27 14:04] LABS: INR-International Normal Ratio 1.3; Prothrombin Time 15.8 sec (12.0-14.7)
[2021-08-27 14:05] LABS: PTT 33.8 sec (22.9-36.1)
[2021-08-27] MEDS ORDERED: Nitroglycerin 2% Ointment 1 INCH/1 GM Packet ONE (14:22)
[2021-08-27] MEDS ORDERED: Heparin 10,000 UNITS/ 10 ML VIAL SLOW IVP SCH ×2 (14:30→15:30)
[2021-08-27] MEDS ORDERED: Heparin 25,000 units/D5W 500 ML IV SCH (14:30)
[2021-08-27] MEDS ORDERED: Heparin 25,000 units/D5W 500 ML ONE (14:38)
[2021-08-27] MEDS ORDERED: Dextrose 50% Abboject 50 ML SYRINGE SLOW IVP PRN (15:21)
[2021-08-27] MEDS ORDERED: Nitroglycerin 0.4 MG TAB (25 Tab Bottle) SL PRN (15:21)
[2021-08-27] MEDS ORDERED: Dextrose 5% in Water 1,000 ML IV PRN (15:21)
[2021-08-27] MEDS ORDERED: Heparin 25,000 units/D5W 500 ML IVPB SCH (15:30)
[2021-08-27] MEDS ORDERED: EVOLOCUMAB 140 MG/ML SC SCH (16:00)
[2021-08-27] MEDS ORDERED: Furosemide 40 MG/4 ML VIAL SLOW IVP SCH (16:15)
[2021-08-27 16:24] LABS: Hemoglobin 10.4 g/dL (14.0-18.0); Platelet Count 185 thou/uL (130-400)
[2021-08-27 16:49] LABS: Troponin I Less than 0.010 ng/mL (< 0.028)
[2021-08-27 18:09] VITALS: BMI 36.8
[2021-08-27 19:42] LABS: INR-International Normal Ratio 1.3; Prothrombin Time 16.3 sec (12.0-14.7)
[2021-08-27 19:43] LABS: PTT 57.3 sec (22.9-36.1)
[2021-08-27 19:53] LABS: Troponin I Less than 0.010 ng/mL (< 0.028)
[2021-08-27] MEDS: Atorvastatin Calcium 40 MG TAB PO SCH (19:57)
[2021-08-27] MEDS: Zolpidem Tartrate 5 MG TAB PO SCH (19:57)
[2021-08-27] MEDS: Metoprolol Tartrate 50 MG TAB PO SCH (19:58)
[2021-08-27] MEDS: hydrALAZINE 25 MG TAB PO SCH (19:58)
[2021-08-27] MEDS: Acetaminophen/Codeine 30-300mg Tablet PO PRN (19:58)
[2021-08-27] MEDS: Oxybutynin 5 MG TAB PO SCH (19:59)
[2021-08-27] MEDS: Dronedarone HCl 400 MG TAB PO SCH (20:09)
[2021-08-27] MEDS: Icosapent Ethyl 1 GM CAPSULE PO SCH (20:09)
[2021-08-27] MEDS: HumuLIN 70/30 (300 UNITS/3 ML VIAL) SC SCH (21:18)
[2021-08-28 00:30] LABS: INR-International Normal Ratio 1.3; Prothrombin Time 16.7 sec (12.0-14.7)
[2021-08-28 00:37] LABS: PTT 136.1 sec (22.9-36.1)
[2021-08-28 06:20] LABS: Anion Gap 14 mmol/L (10-20); BUN (Urea Nitrogen) 43 mg/dL (8.4-25.7); Calc. Creatinine Clearance 42 mL/min (70-130); Calcium 8.2 mg/dL (7.8-10.44); Carbon Dioxide 22 mmol/L (23-31); Chloride 105 mmol/L (98-107); Glucose 176 mg/dL (83-110); Potassium 4.6 mmol/L (3.5-5.1); Sodium 136 mmol/L (136-145)
[2021-08-28] MEDS: HumaLOG 300 UNITS/3 ML VIAL SC PRN ×4 (06:43→21:28)
[2021-08-28 08:17] LABS: Hemoglobin 9.6 g/dL (14.0-18.0); Mean Corpuscular Hemoglobin 31.1 pg (27.0-31.0); Mean Corpuscular Volume 94.3 fL (78.0-98.0); Red Blood Cell (RBC) Count 3.09 mill/uL (4.70-6.10); White Blood Cell (WBC) Count 9.9 thou/uL (4.8-10.8)
[2021-08-28 08:18] LABS: #Eosinphils 0.1 thou/uL (0.0-0.7); #Lymphocytes 2.1 thou/uL (1.20-3.40); #Monocytes 1.1 thou/uL (0.11-0.59); #Neutrophils 6.6 thou/uL (1.40-6.50); %Basophils 0.1 % (0.0-1.0); %Eosinophils 1.4 % (0.0-10.0); %Lymphocytes 21.1 % (21.0-51.0); %Monocytes 11.3 % (0.0-10.0); %Neutrophils 66.1 % (42.0-75.0); Platelet Count 171 thou/uL (130-400); RBC Distribution Width 12.2 % (11.5-14.5)
[2021-08-28] MEDS ORDERED: Losartan 25 MG TAB PO SCH (09:00)
[2021-08-28] MEDS: Acetaminophen/Codeine 30-300mg Tablet PO PRN ×3 (09:22→22:24)
[2021-08-28] MEDS: Aspirin 81 mg Enteric Coated Tablet PO SCH (09:23)
[2021-08-28] MEDS: Citalopram 20 MG TAB PO SCH (09:23)
[2021-08-28] MEDS: Icosapent Ethyl 1 GM CAPSULE PO SCH ×2 (09:23→21:23)
[2021-08-28] MEDS: Metoprolol Tartrate 50 MG TAB PO SCH ×2 (09:23→21:23)
[2021-08-28] MEDS: Oxybutynin 5 MG TAB PO SCH ×2 (09:24→21:26)
[2021-08-28] MEDS: hydrALAZINE 25 MG TAB PO SCH ×3 (09:24→21:24)
[2021-08-28] MEDS: Dronedarone HCl 400 MG TAB PO SCH ×2 (09:24→17:36)
[2021-08-28] MEDS: HumuLIN 70/30 (300 UNITS/3 ML VIAL) SC SCH ×2 (09:25→21:27)
[2021-08-28 14:41] LABS: SARS-CoV-2 PCR by NAA Not Detected (NotDetected)
[2021-08-28] MEDS: Colchicine 0.6 MG TAB PO SCH (21:24)
[2021-08-28] MEDS: Zolpidem Tartrate 5 MG TAB PO SCH (21:26)
[2021-08-28] MEDS: Atorvastatin Calcium 40 MG TAB PO SCH (21:27)
[2021-08-29 02:32] LABS: #Eosinphils 0.5 thou/uL (0.0-0.7); #Lymphocytes 3.1 thou/uL (1.20-3.40); #Monocytes 1.3 thou/uL (0.11-0.59); #Neutrophils 6.4 thou/uL (1.40-6.50); %Basophils 0.4 % (0.0-1.0); %Eosinophils 4.1 % (0.0-10.0); %Lymphocytes 27.4 % (21.0-51.0); %Monocytes 11.3 % (0.0-10.0); %Neutrophils 56.8 % (42.0-75.0); Hemoglobin 10.5 g/dL (14.0-18.0); Mean Corpuscular HGB CONC 32.6 g/dL (32.0-36.0); Mean Corpuscular Hemoglobin 30.6 pg (27.0-31.0); Mean Corpuscular Volume 93.9 fL (78.0-98.0); Mean Platelet Volume 7.5 fL (7.4-10.4); Platelet Count 171 thou/uL (130-400); RBC Distribution Width 12.1 % (11.5-14.5); Red Blood Cell (RBC) Count 3.44 mill/uL (4.70-6.10); White Blood Cell (WBC) Count 11.2 thou/uL (4.8-10.8)
[2021-08-29 02:57] LABS: Anion Gap 15 mmol/L (10-20); BUN (Urea Nitrogen) 48 mg/dL (8.4-25.7); Calc. Creatinine Clearance 37 mL/min (70-130); Calcium 8.3 mg/dL (7.8-10.44); Carbon Dioxide 23 mmol/L (23-31); Chloride 105 mmol/L (98-107); Glucose 117 mg/dL (83-110); Potassium 4.5 mmol/L (3.5-5.1); Sodium 138 mmol/L (136-145)
[2021-08-29] MEDS: Icosapent Ethyl 1 GM CAPSULE PO SCH ×2 (08:50→20:06)
[2021-08-29] MEDS: hydrALAZINE 25 MG TAB PO SCH ×3 (08:50→20:06)
[2021-08-29] MEDS: Dronedarone HCl 400 MG TAB PO SCH ×2 (08:50→16:04)
[2021-08-29] MEDS: Metoprolol Tartrate 50 MG TAB PO SCH ×2 (08:50→20:07)
[2021-08-29] MEDS: Colchicine 0.6 MG TAB PO SCH ×2 (08:51→20:06)
[2021-08-29] MEDS: Acetaminophen/Codeine 30-300mg Tablet PO PRN ×3 (08:51→21:49)
[2021-08-29] MEDS: Oxybutynin 5 MG TAB PO SCH ×2 (08:51→20:07)
[2021-08-29] MEDS: Aspirin 81 mg Enteric Coated Tablet PO SCH (08:51)
[2021-08-29] MEDS: Citalopram 20 MG TAB PO SCH (08:51)
[2021-08-29] MEDS: HumuLIN 70/30 (300 UNITS/3 ML VIAL) SC SCH ×2 (08:53→21:49)
[2021-08-29] MEDS ORDERED: Amlodipine 10 MG TAB PO SCH (10:15)
[2021-08-29] MEDS ORDERED: Furosemide 40 MG/4 ML VIAL SLOW IVP SCH (10:15)
[2021-08-29 15:23] LABS: Hemoglobin 10.7 g/dL (14.0-18.0); Platelet Count 205 thou/uL (130-400)
[2021-08-29] MEDS: HumaLOG 300 UNITS/3 ML VIAL SC PRN ×2 (16:10→21:50)
[2021-08-29] MEDS: Heparin 5,000 UNITS/ML VIAL SC SCH (20:06)
[2021-08-29] MEDS: Atorvastatin Calcium 40 MG TAB PO SCH (20:06)
[2021-08-29] MEDS: Zolpidem Tartrate 5 MG TAB PO SCH (21:49)
[2021-08-30] MEDS: Acetaminophen/Codeine 30-300mg Tablet PO PRN ×4 (04:01→22:37)
[2021-08-30 04:51] LABS: #Basophils 0.1 thou/uL (0.0-0.2); #Eosinphils 0.5 thou/uL (0.0-0.7); #Monocytes 1.2 thou/uL (0.11-0.59); #Neutrophils 8.1 thou/uL (1.40-6.50); %Basophils 0.6 % (0.0-1.0); %Eosinophils 3.8 % (0.0-10.0); %Lymphocytes 23.1 % (21.0-51.0); %Monocytes 9.4 % (0.0-10.0); %Neutrophils 63.1 % (42.0-75.0); Hemoglobin 10.8 g/dL (14.0-18.0); Mean Corpuscular HGB CONC 31.5 g/dL (32.0-36.0); Mean Corpuscular Hemoglobin 30.6 pg (27.0-31.0); Mean Corpuscular Volume 97.1 fL (78.0-98.0); Mean Platelet Volume 7.9 fL (7.4-10.4); Platelet Count 220 thou/uL (130-400); RBC Distribution Width 12.1 % (11.5-14.5); Red Blood Cell (RBC) Count 3.53 mill/uL (4.70-6.10); White Blood Cell (WBC) Count 12.8 thou/uL (4.8-10.8)
[2021-08-30 05:04] LABS: Anion Gap 16 mmol/L (10-20); BUN (Urea Nitrogen) 52 mg/dL (8.4-25.7); Calc. Creatinine Clearance 34 mL/min (70-130); Calcium 8.3 mg/dL (7.8-10.44); Carbon Dioxide 21 mmol/L (23-31); Chloride 105 mmol/L (98-107); Glucose 121 mg/dL (83-110); Potassium 4.5 mmol/L (3.5-5.1); Sodium 137 mmol/L (136-145)
[2021-08-30] MEDS: Colchicine 0.6 MG TAB PO SCH ×2 (08:52→20:44)
[2021-08-30] MEDS: Icosapent Ethyl 1 GM CAPSULE PO SCH ×2 (08:52→20:47)
[2021-08-30] MEDS: Metoprolol Tartrate 50 MG TAB PO SCH ×2 (08:52→20:47)
[2021-08-30] MEDS: Citalopram 20 MG TAB PO SCH (08:53)
[2021-08-30] MEDS: Heparin 5,000 UNITS/ML VIAL SC SCH ×2 (08:53→20:46)
[2021-08-30] MEDS: Dronedarone HCl 400 MG TAB PO SCH ×2 (08:53→16:12)
[2021-08-30] MEDS: hydrALAZINE 25 MG TAB PO SCH ×3 (08:53→20:46)
[2021-08-30] MEDS: Oxybutynin 5 MG TAB PO SCH ×2 (08:53→20:47)
[2021-08-30] MEDS: Amlodipine 10 MG TAB PO SCH (08:53)
[2021-08-30] MEDS: Aspirin 81 mg Enteric Coated Tablet PO SCH (08:53)
[2021-08-30] MEDS: HumuLIN 70/30 (300 UNITS/3 ML VIAL) SC SCH ×2 (08:54→22:40)
[2021-08-30] MEDS: HumaLOG 300 UNITS/3 ML VIAL SC PRN (11:24)
[2021-08-30] MEDS: Lactated Ringer's 500 ML IV SCH ×2 (12:32→16:03)
[2021-08-30 16:40] LABS: Anion Gap 11 mmol/L (10-20); BUN (Urea Nitrogen) 51 mg/dL (8.4-25.7); Calc. Creatinine Clearance 35 mL/min (70-130); Carbon Dioxide 24 mmol/L (23-31); Chloride 107 mmol/L (98-107); Potassium 4.4 mmol/L (3.5-5.1); Sodium 138 mmol/L (136-145)
[2021-08-30 16:48] LABS: Glucose 58 mg/dL (83-110)
[2021-08-30] MEDS: Atorvastatin Calcium 20 MG TAB PO SCH (20:44)
[2021-08-30] MEDS: Zolpidem Tartrate 5 MG TAB PO SCH (22:37)
[2021-08-31 04:59] LABS: #Eosinphils 0.3 thou/uL (0.0-0.7); #Lymphocytes 2.5 thou/uL (1.20-3.40); #Monocytes 0.9 thou/uL (0.11-0.59); #Neutrophils 5.3 thou/uL (1.40-6.50); %Basophils 0.3 % (0.0-1.0); %Eosinophils 3.6 % (0.0-10.0); %Lymphocytes 27.8 % (21.0-51.0); %Monocytes 9.5 % (0.0-10.0); %Neutrophils 58.8 % (42.0-75.0); Hemoglobin 9.7 g/dL (14.0-18.0); Mean Corpuscular Hemoglobin 30.8 pg (27.0-31.0); Mean Corpuscular Volume 96.4 fL (78.0-98.0); Mean Platelet Volume 7.6 fL (7.4-10.4); Platelet Count 205 thou/uL (130-400); RBC Distribution Width 12.1 % (11.5-14.5); Red Blood Cell (RBC) Count 3.14 mill/uL (4.70-6.10)
[2021-08-31] MEDS: Acetaminophen/Codeine 30-300mg Tablet PO PRN ×4 (05:05→23:12)
[2021-08-31 05:16] LABS: Anion Gap 11 mmol/L (10-20); BUN (Urea Nitrogen) 54 mg/dL (8.4-25.7); Calc. Creatinine Clearance 33 mL/min (70-130); Calcium 7.9 mg/dL (7.8-10.44); Carbon Dioxide 25 mmol/L (23-31); Chloride 106 mmol/L (98-107); Glucose 166 mg/dL (83-110); Potassium 4.3 mmol/L (3.5-5.1); Sodium 138 mmol/L (136-145)
[2021-08-31] MEDS: HumaLOG 300 UNITS/3 ML VIAL SC PRN ×2 (06:01→11:08)
[2021-08-31] MEDS: Metoprolol Tartrate 50 MG TAB PO SCH ×2 (07:13→20:34)
[2021-08-31] MEDS: hydrALAZINE 25 MG TAB PO SCH ×3 (08:40→20:33)
[2021-08-31] MEDS: Oxybutynin 5 MG TAB PO SCH ×2 (08:40→20:34)
[2021-08-31] MEDS: Colchicine 0.6 MG TAB PO SCH (08:40)
[2021-08-31] MEDS: Icosapent Ethyl 1 GM CAPSULE PO SCH ×2 (08:40→20:33)
[2021-08-31] MEDS: Amlodipine 10 MG TAB PO SCH (08:40)
[2021-08-31] MEDS: Dronedarone HCl 400 MG TAB PO SCH ×2 (08:40→17:28)
[2021-08-31] MEDS: Aspirin 81 mg Enteric Coated Tablet PO SCH (08:40)
[2021-08-31] MEDS: Heparin 5,000 UNITS/ML VIAL SC SCH ×2 (08:40→20:33)
[2021-08-31] MEDS: Citalopram 20 MG TAB PO SCH (08:40)
[2021-08-31] MEDS: HumuLIN 70/30 (300 UNITS/3 ML VIAL) SC SCH ×2 (08:42→20:33)
[2021-08-31] MEDS: Atorvastatin Calcium 20 MG TAB PO SCH (20:33)
[2021-08-31] MEDS: Zolpidem Tartrate 5 MG TAB PO SCH (22:11)
[2021-09-01 04:26] LABS: #Eosinphils 0.3 thou/uL (0.0-0.7); #Lymphocytes 2.5 thou/uL (1.20-3.40); #Monocytes 0.7 thou/uL (0.11-0.59); #Neutrophils 3.9 thou/uL (1.40-6.50); %Basophils 0.2 % (0.0-1.0); %Eosinophils 3.8 % (0.0-10.0); %Monocytes 9.4 % (0.0-10.0); %Neutrophils 52.7 % (42.0-75.0); Hemoglobin 10.2 g/dL (14.0-18.0); Mean Corpuscular HGB CONC 31.9 g/dL (32.0-36.0); Mean Corpuscular Hemoglobin 31.1 pg (27.0-31.0); Mean Corpuscular Volume 97.3 fL (78.0-98.0); Mean Platelet Volume 7.1 fL (7.4-10.4); Platelet Count 207 thou/uL (130-400); Red Blood Cell (RBC) Count 3.27 mill/uL (4.70-6.10); White Blood Cell (WBC) Count 7.3 thou/uL (4.8-10.8)
[2021-09-01 04:38] LABS: Anion Gap 7 mmol/L (10-20); BUN (Urea Nitrogen) 49 mg/dL (8.4-25.7); Calc. Creatinine Clearance 40 mL/min (70-130); Calcium 7.8 mg/dL (7.8-10.44); Carbon Dioxide 29 mmol/L (23-31); Chloride 108 mmol/L (98-107); Glucose 69 mg/dL (83-110); Sodium 140 mmol/L (136-145)
[2021-09-01] MEDS ORDERED: Metoprolol Tartrate 25 MG TAB PO SCH (09:00)
[2021-09-01] MEDS: HumuLIN 70/30 (300 UNITS/3 ML VIAL) SC SCH (09:01)
[2021-09-01] MEDS: Icosapent Ethyl 1 GM CAPSULE PO SCH (09:02)
[2021-09-01] MEDS: Dronedarone HCl 400 MG TAB PO SCH (09:03)
[2021-09-01] MEDS: Aspirin 81 mg Enteric Coated Tablet PO SCH (09:03)
[2021-09-01] MEDS: Acetaminophen/Codeine 30-300mg Tablet PO PRN (09:03)
[2021-09-01] MEDS: Oxybutynin 5 MG TAB PO SCH (09:04)
[2021-09-01] MEDS: hydrALAZINE 25 MG TAB PO SCH (09:04)
[2021-09-01] MEDS: Amlodipine 10 MG TAB PO SCH (09:05)
[2021-09-01] MEDS: Citalopram 20 MG TAB PO SCH (09:05)
[2021-09-01] MEDS: Heparin 5,000 UNITS/ML VIAL SC SCH (09:06)
[2021-09-01 12:09] VITALS: BP 133/60; TEMP 97.8
[2021-09-03] MEDS ORDERED: cloNIDine 0.2mg/24 Hour PATCH TD SCH (09:00)
== END 2021-09-01 15:25 | disposition home or self-care (01) | DRG 315 ==
LOC: ERS 12:06 → 2NO 14:01 → OBSVTOIN 08-29 14:16
PROVIDERS: ADMIT Emergency Medicine; ATTEND Emergency Medicine
DX: I97.0 Postcardiotomy syndrome (principal); N17.9 Acute kidney failure, unspecified; J90 Pleural effusion, not elsewhere classified; N18.4 Chronic kidney disease, stage 4 (severe); R07.89 Other chest pain; Z20.822 Contact with and (suspected) exposure to COVID-19; I48.91 Unspecified atrial fibrillation; E78.5 Hyperlipidemia, unspecified; I25.10 Atherosclerotic heart disease of native coronary artery without angina pectoris; F32.A Depression, unspecified; F41.9 Anxiety disorder, unspecified; M19.90 Unspecified osteoarthritis, unspecified site; E11.22 Type 2 diabetes mellitus with diabetic chronic kidney disease; R00.1 Bradycardia, unspecified; D63.1 Anemia in chronic kidney disease; G47.33 Obstructive sleep apnea (adult) (pediatric); I12.9 Hypertensive chronic kidney disease with stage 1 through stage 4 chronic kidney disease, or unspecified chronic kidney disease; E66.01 Morbid (severe) obesity due to excess calories; E11.649 Type 2 diabetes mellitus with hypoglycemia without coma; Z68.37 Body mass index [BMI] 37.0-37.9, adult; Z90.49 Acquired absence of other specified parts of digestive tract; Z87.891 Personal history of nicotine dependence; Z95.1 Presence of aortocoronary bypass graft; Z79.899 Other long term (current) drug therapy; Z79.891 Long term (current) use of opiate analgesic; Z79.82 Long term (current) use of aspirin; Z79.4 Long term (current) use of insulin; Z85.038 Personal history of other malignant neoplasm of large intestine
CPT/HCPCS: 36415; 36416; 76705; 76770; 80048; 80053; 80061; 85025; 85610; 85730; 93005; 93306; 96365; 96366; 96375; 96376; G0378; J1644; J1815; J1940; J7120; U0003; U0005

== ENCOUNTER 2023-04-06 15:28 | Observation (INO) | payer MEDICARE ==
[2023-04-06 17:54] LABS: #Basophils 0.1 thou/uL (0.0-0.2); #Eosinphils 0.2 thou/uL (0.0-0.7); #Monocytes 0.5 thou/uL (0.11-0.59); #Neutrophils 5.2 thou/uL (1.40-6.50); %Basophils 0.6 % (0.0-1.0); %Eosinophils 2.4 % (0.0-10.0); %Lymphocytes 24.1 % (21.0-51.0); %Monocytes 6.4 % (0.0-10.0); %Neutrophils 66.2 % (42.0-75.0); Hematocrit 35.9 % (42.0-52.0); Hemoglobin 11.9 g/dL (14.0-18.0); Mean Corpuscular HGB CONC 33.1 g/dL (32.0-36.0); Mean Corpuscular Hemoglobin 31.2 pg (27.0-31.0); Mean Platelet Volume 9.7 fL (7.4-10.4); Platelet Count 194 10x3/uL (130-400); RBC Distribution Width 13.1 % (11.5-14.5); Red Blood Cell (RBC) Count 3.82 mill/uL (4.70-6.10); White Blood Cell (WBC) Count 7.9 10x3/uL (4.8-10.8)
[2023-04-06 18:21] LABS: ALT (SGPT) 17 U/L (8-55); AST (SGOT) 24 U/L (5-34); Albumin 4.1 g/dL (3.4-4.8); Alkaline Phosphatase 35 U/L (40-110); Anion Gap 13 mmol/L (10-20); BUN (Urea Nitrogen) 46 mg/dL (8.4-25.7); Bilirubin, Total 0.3 mg/dL (0.2-1.2); Calc. Creatinine Clearance 0 mL/min (70-130); Calcium 8.8 mg/dL (7.8-10.44); Carbon Dioxide 22 mmol/L (23-31); Chloride 106 mmol/L (98-107); Estimated GFR 25; Globulin 3.4 g/dL (2.4-3.5); Glucose 85 mg/dL (83-110); Potassium 5.6 mmol/L (3.5-5.1); Protein, Total 7.5 g/dL (5.8-8.1); Sodium 135 mmol/L (136-145)
[2023-04-06 19:42] VITALS: BMI 34.4
[2023-04-07] MEDS: Sodium Chloride 0.9% 1,000 ML IV SCH ×3 (00:49→17:50)
[2023-04-07 05:52] LABS: Anion Gap 13 mmol/L (10-20); BUN (Urea Nitrogen) 43 mg/dL (8.4-25.7); Calc. Creatinine Clearance 38 mL/min (70-130); Calcium 8.6 mg/dL (7.8-10.44); Carbon Dioxide 20 mmol/L (23-31); Chloride 109 mmol/L (98-107); Estimated GFR 30; Glucose 141 mg/dL (83-110); Potassium 4.7 mmol/L (3.5-5.1); Sodium 137 mmol/L (136-145)
[2023-04-07] MEDS ORDERED: Heparin 10,000 UNITS/ 10 ML VIAL ONE (06:06)
[2023-04-07] MEDS ORDERED: Lidocaine 1% (PF) 30 ML VIAL ONE (06:07)
[2023-04-07] MEDS ORDERED: fentaNYL 50 mcg/mL 1 mL Vial ONE (06:48)
[2023-04-07] MEDS ORDERED: Midazolam HCl 2 mg/2 ml Vial ONE (06:49)
[2023-04-07] MEDS ORDERED: Protamine Sulfate 50 MG/5 ML VIAL ONE (07:49)
[2023-04-07] MEDS ORDERED: hydrALAZINE 20 MG/ML VIAL ONE (07:57)
[2023-04-07] MEDS ORDERED: Nitroglycerin 0.4 MG TAB (25 Tab Bottle) SL PRN ×2 (08:02→13:03)
[2023-04-07] MEDS ORDERED: Sodium Chloride 0.9% 200 ML IV PRN (08:02)
[2023-04-07] MEDS ORDERED: Acetaminophen/Codeine 30-300mg Tablet PO PRN (08:02)
[2023-04-07] MEDS ORDERED: Sodium Chloride 0.9% 1,000 ML IV SCH (08:15)
[2023-04-07] MEDS ORDERED: Iopamidol 370 76% 100 ML VIAL ONE (08:54)
[2023-04-07] MEDS: Isosorbide Mononitrate 30 MG ER.TAB PO SCH (09:17)
[2023-04-07 11:29] LABS: Cardiac Risk 2.6 (Less than 4.5)
[2023-04-07] MEDS ORDERED: Dextrose 5% in Water 1,000 ML IV PRN ×2 (12:30→13:02)
[2023-04-07] MEDS ORDERED: Dextrose 50% Abboject 50 ML SYRINGE IVP PRN (12:30)
[2023-04-07] MEDS ORDERED: Glucagon 1 MG/ML KIT IM PRN (12:30)
[2023-04-07] MEDS ORDERED: HumaLOG 300 UNITS/3 ML VIAL SC PRN (13:02)
[2023-04-07] MEDS: Acetaminophen/Codeine 30-300mg Tablet PO PRN ×2 (15:37→20:32)
[2023-04-07] MEDS: Oxybutynin 5 MG TAB PO SCH (20:03)
[2023-04-07] MEDS: Icosapent Ethyl 1 GM CAPSULE PO SCH (20:03)
[2023-04-07] MEDS: Ranolazine 500 MG ER.TAB PO SCH (20:03)
[2023-04-07] MEDS: Metoprolol Tartrate 25 MG TAB PO SCH (20:03)
[2023-04-07] MEDS: HumuLIN 70/30 (300 UNITS/3 ML VIAL) SC SCH (20:04)
[2023-04-08 06:34] LABS: Hemoglobin A1c 5.7 % (4.0-6.0)
[2023-04-08] MEDS: Sodium Chloride 0.9% 1,000 ML IV SCH (07:23)
[2023-04-08] MEDS: Icosapent Ethyl 1 GM CAPSULE PO SCH (08:24)
[2023-04-08] MEDS: Metoprolol Tartrate 25 MG TAB PO SCH (08:25)
[2023-04-08] MEDS: Isosorbide Mononitrate 30 MG ER.TAB PO SCH (08:25)
[2023-04-08] MEDS: Acetaminophen/Codeine 30-300mg Tablet PO PRN (08:25)
[2023-04-08] MEDS: Ranolazine 500 MG ER.TAB PO SCH (08:26)
[2023-04-08] MEDS: Oxybutynin 5 MG TAB PO SCH (08:26)
[2023-04-08] MEDS: HumuLIN 70/30 (300 UNITS/3 ML VIAL) SC SCH (08:26)
[2023-04-08] MEDS ORDERED: Losartan 25 MG TAB PO SCH (09:00)
[2023-04-08] MEDS ORDERED: Multivit, Therapeutic 1 TAB PO SCH (09:00)
[2023-04-08] MEDS ORDERED: NIFEdipine XL 60 MG ER.TAB PO SCH (09:00)
[2023-04-08 09:13] LABS: Anion Gap 12 mmol/L (10-20); BUN (Urea Nitrogen) 33 mg/dL (8.4-25.7); Calc. Creatinine Clearance 44 mL/min (70-130); Carbon Dioxide 19 mmol/L (23-31); Chloride 110 mmol/L (98-107); Estimated GFR 35; Glucose 104 mg/dL (83-110); Potassium 5.1 mmol/L (3.5-5.1); Sodium 136 mmol/L (136-145)
[2023-04-08 11:47] VITALS: BP 124/61; TEMP 97.5
== END 2023-04-08 12:36 | disposition home or self-care (01) ==
LOC: ERS 15:28 → 2SW 17:24
PROVIDERS: ADMIT Internal Medicine Cardiovascular Disease; ATTEND Internal Medicine Cardiovascular Disease
DX: E11.22 Type 2 diabetes mellitus with diabetic chronic kidney disease (principal); I12.9 Hypertensive chronic kidney disease with stage 1 through stage 4 chronic kidney disease, or unspecified chronic kidney disease; N18.5 Chronic kidney disease, stage 5; E78.00 Pure hypercholesterolemia, unspecified; I48.92 Unspecified atrial flutter; I73.9 Peripheral vascular disease, unspecified; I25.10 Atherosclerotic heart disease of native coronary artery without angina pectoris; F41.8 Other specified anxiety disorders; Z87.891 Personal history of nicotine dependence; Z79.4 Long term (current) use of insulin; Z79.899 Other long term (current) drug therapy
CPT/HCPCS: 71045; 80048 ×2; 80053; 80061; 82962 ×2; 83036; 85025; 85347; 93005; 93455; 94760; 99285; C1769 ×2; G0378 ×3; J0360; J3010; 36415; 36416; 99152; 99153; J1644; J1815; J2001; J2250; J2720; J7050; Q9967

== ENCOUNTER 2023-07-23 08:30 | Inpatient (IN) | payer MEDICARE ==
[2023-07-23] MEDS ORDERED: Sodium Chloride 0.9% 100 ML ONE (09:09)
[2023-07-23] MEDS ORDERED: CEFAZOLIN 2 GM VIAL ONE (09:09)
[2023-07-23] MEDS ORDERED: Vancomycin 1 GM VIAL ONE (09:27)
[2023-07-23] MEDS ORDERED: Thrombin 5000 UNITS/5 ML VIAL ONE (09:27)
[2023-07-23] MEDS ORDERED: Dexamethasone 4 mg/ml Vial ONE (10:18)
[2023-07-23] MEDS ORDERED: Ondansetron PF 4 MG/2 ML Vial ONE (10:18)
[2023-07-23] MEDS ORDERED: PROPOFOL 20 ML ONE (10:18)
[2023-07-23] MEDS ORDERED: fentaNYL 50 mcg/mL 1 mL Vial ONE (10:18)
[2023-07-23] MEDS ORDERED: Rocuronium Bromide 10 MG/ML (10ML VIAL) ONE (10:18)
[2023-07-23] MEDS ORDERED: Lidocaine 1% PF 5 ML VIAL ONE (10:18)
[2023-07-23] MEDS ORDERED: HYDROmorphone 2 MG/ML VIAL ONE (10:18)
[2023-07-23] MEDS ORDERED: SUGAMMADEX SODIUM 200 MG/2 ML VIAL ONE (10:19)
[2023-07-23] MEDS ORDERED: Phenylephrine 40 MG/NS 250 ML 250 ML ONE (10:57)
[2023-07-23] MEDS ORDERED: Ondansetron HCl/PF 4 MG/2 ML Vial IVP PRN (11:40)
[2023-07-23] MEDS ORDERED: Promethazine HCl 25 MG/ML VIAL IM PRN (11:40)
[2023-07-23] MEDS ORDERED: ePHEDrine Sulfate 50 MG/10 ML VIAL ONE (12:28)
[2023-07-23] MEDS ORDERED: fentaNYL PF 100 MCG/2 ML SYRINGE ONE (14:41)
[2023-07-23] MEDS ORDERED: Milk Of Magnesia 30 ML UDCUP PO PRN (15:05)
[2023-07-23] MEDS ORDERED: diphenhydrAMINE 25 MG CAP PO PRN (15:05)
[2023-07-23] MEDS ORDERED: Acetaminophen 325 MG TAB PO PRN (15:05)
[2023-07-23] MEDS ORDERED: Acetaminophen/Codeine 30-300mg Tablet PO PRN (15:05)
[2023-07-23] MEDS ORDERED: hydrALAZINE 20 MG/ML VIAL SLOW IVP PRN (15:09)
[2023-07-23] MEDS ORDERED: Promethazine 25 MG TAB PO PRN (15:09)
[2023-07-23] MEDS ORDERED: HYDROcodone/Acetaminophen 5/325 mg Tablet PO PRN (15:09)
[2023-07-23] MEDS ORDERED: hydrOXYzine 10 MG TAB PO PRN (15:11)
[2023-07-23] MEDS ORDERED: Nitroglycerin 0.4 MG TAB (25 Tab Bottle) SL PRN (15:11)
[2023-07-23] MEDS ORDERED: cloNIDine 0.1mg/24 Hour PATCH TD SCH (16:00)
[2023-07-23] MEDS: Furosemide 20 MG TAB PO SCH (16:00)
[2023-07-23] MEDS ORDERED: CEFAZOLIN 2 GM in Sodium Chloride 0.9% 100 ML IVPB SCH (17:00)
[2023-07-23] MEDS: Sodium Chloride 0.9% 1,000 ML IV SCH (18:22)
[2023-07-23 18:42] LABS: Bilirubin Negative (Negative); Blood, Urine Moderate (Negative); Glucose, Urine (Dipstick) Negative (Negative); Ketone, Urine Trace mg/dL (Negative); Leukocyte Moderate (Negative); Nitrite Negative (Negative); Protein, Urine (Dipstick) 100 mg/dL (Neg-Trace); Urobilinogen 0.2 mg/dL (Less than 2); pH, Urine 5.5 (5.0-9.0)
[2023-07-23 18:44] LABS: Clarity Cloudy (Clear); Specific Gravity, Urine 1.019 (1.002-1.036)
[2023-07-23 18:46] LABS: Bacteria/HPF 4+ HPF (None Seen); RBC/HPF Greater than 50 HPF (0-3); Squamous Epithelial None Seen HPF (0-3); WBC/HPF Greater than 50 HPF (0-3)
[2023-07-23] MEDS: Morphine 2 MG/ML VIAL SLOW IVP PRN ×2 (19:35→22:12)
[2023-07-23] MEDS: Metoprolol Tartrate 25 MG TAB PO SCH (19:36)
[2023-07-23] MEDS: Citalopram 20 MG TAB PO SCH (19:36)
[2023-07-23] MEDS: Amitriptyline HCl 10 MG TAB PO SCH (19:36)
[2023-07-23] MEDS: Atorvastatin Calcium 40 MG TAB PO SCH (19:36)
[2023-07-23] MEDS: Losartan 25 MG TAB PO SCH (19:36)
[2023-07-23] MEDS: Oxybutynin 5 MG TAB PO SCH (19:36)
[2023-07-23] MEDS: Ranolazine 500 MG ER.TAB PO SCH (19:36)
[2023-07-23] MEDS: Docusate 100 MG CAP PO SCH (19:36)
[2023-07-23] MEDS: hydrALAZINE 25 MG TAB PO SCH (19:36)
[2023-07-23] MEDS: CEFAZOLIN 2 GM in Sodium Chloride 0.9% 100 ML IVPB SCH (19:37)
[2023-07-23] MEDS: HYDROcodone/Acetaminophen 10/325 mg Tablet PO PRN (21:20)
[2023-07-23] MEDS: HumuLIN 70/30 100 Unit/ml 10 ml Vial SC SCH (21:21)
[2023-07-23] MEDS: Icosapent Ethyl 1 GM CAPSULE PO SCH (21:23)
[2023-07-24] MEDS: Morphine 2 MG/ML VIAL SLOW IVP PRN ×3 (00:22→11:46)
[2023-07-24] MEDS: CEFAZOLIN 2 GM in Sodium Chloride 0.9% 100 ML IVPB SCH ×3 (03:56→20:19)
[2023-07-24] MEDS: Sodium Chloride 0.9% 1,000 ML IV SCH ×2 (04:27→17:29)
[2023-07-24 05:47] LABS: #Neutrophils 10.2 thou/uL (1.40-6.50); %Basophils 0.2 % (0.0-1.0); %Lymphocytes 10.9 % (21.0-51.0); %Monocytes 7.5 % (0.0-10.0); Hematocrit 31.2 % (42.0-52.0); Hemoglobin 10.2 g/dL (14.0-18.0); Mean Corpuscular HGB CONC 32.7 g/dL (32.0-36.0); Mean Corpuscular Hemoglobin 31.5 pg (27.0-31.0); Mean Corpuscular Volume 96.3 fl (78.0-98.0); Platelet Count 163 10x3/uL (130-400); RBC Distribution Width 13.2 % (11.5-14.5); Red Blood Cell (RBC) Count 3.24 mill/uL (4.70-6.10); White Blood Cell (WBC) Count 12.6 10x3/uL (4.8-10.8)
[2023-07-24] MEDS: HYDROcodone/Acetaminophen 10/325 mg Tablet PO PRN ×4 (05:55→20:44)
[2023-07-24 06:18] LABS: Anion Gap 12 mmol/L (10-20); BUN (Urea Nitrogen) 37 mg/dL (8.4-25.7); Calc. Creatinine Clearance 37 mL/min (70-130); Calcium 7.8 mg/dL (7.8-10.44); Carbon Dioxide 25 mmol/L (23-31); Chloride 104 mmol/L (98-107); Estimated GFR 27; Glucose 177 mg/dL (83-110); Potassium 4.8 mmol/L (3.5-5.1); Sodium 136 mmol/L (136-145)
[2023-07-24] MEDS: Oxybutynin 5 MG TAB PO SCH ×2 (09:53→20:30)
[2023-07-24] MEDS: Metoprolol Tartrate 25 MG TAB PO SCH ×2 (09:53→20:30)
[2023-07-24] MEDS: Icosapent Ethyl 1 GM CAPSULE PO SCH ×2 (09:53→20:31)
[2023-07-24] MEDS: Docusate 100 MG CAP PO SCH ×2 (09:53→20:30)
[2023-07-24] MEDS: hydrALAZINE 25 MG TAB PO SCH ×3 (09:53→20:31)
[2023-07-24] MEDS: Aspirin 81 mg Enteric Coated Tablet PO SCH (09:53)
[2023-07-24] MEDS: NIFEdipine XL 60 MG ER.TAB PO SCH (09:53)
[2023-07-24] MEDS: Ranolazine 500 MG ER.TAB PO SCH ×2 (09:54→20:28)
[2023-07-24] MEDS: Multivit, Therapeutic 1 TAB PO SCH (09:54)
[2023-07-24] MEDS: HumuLIN 70/30 100 Unit/ml 10 ml Vial SC SCH ×2 (15:18→22:38)
[2023-07-24] MEDS: Citalopram 20 MG TAB PO SCH (20:28)
[2023-07-24] MEDS: Atorvastatin Calcium 40 MG TAB PO SCH (20:30)
[2023-07-24] MEDS: Losartan 25 MG TAB PO SCH (20:30)
[2023-07-24] MEDS: Amitriptyline HCl 10 MG TAB PO SCH (20:30)
[2023-07-25] MEDS: CEFAZOLIN 2 GM in Sodium Chloride 0.9% 100 ML IVPB SCH ×3 (04:17→21:10)
[2023-07-25] MEDS: HYDROcodone/Acetaminophen 10/325 mg Tablet PO PRN ×4 (04:26→21:13)
[2023-07-25] MEDS: Sodium Chloride 0.9% 1,000 ML IV SCH ×2 (07:20→21:26)
[2023-07-25] MEDS: HumuLIN 70/30 100 Unit/ml 10 ml Vial SC SCH ×2 (09:53→21:14)
[2023-07-25] MEDS: Icosapent Ethyl 1 GM CAPSULE PO SCH ×2 (09:53→21:12)
[2023-07-25] MEDS: NIFEdipine XL 60 MG ER.TAB PO SCH (09:54)
[2023-07-25] MEDS: Ranolazine 500 MG ER.TAB PO SCH ×2 (09:54→21:13)
[2023-07-25] MEDS: Oxybutynin 5 MG TAB PO SCH ×2 (09:54→21:13)
[2023-07-25] MEDS: Multivit, Therapeutic 1 TAB PO SCH (09:54)
[2023-07-25] MEDS: Docusate 100 MG CAP PO SCH ×2 (09:54→21:13)
[2023-07-25] MEDS: Metoprolol Tartrate 25 MG TAB PO SCH ×2 (09:54→21:13)
[2023-07-25] MEDS: hydrALAZINE 25 MG TAB PO SCH ×3 (09:54→21:12)
[2023-07-25] MEDS: Aspirin 81 mg Enteric Coated Tablet PO SCH (09:55)
[2023-07-25] MEDS: Furosemide 20 MG TAB PO SCH (16:28)
[2023-07-25] MEDS: Amitriptyline HCl 10 MG TAB PO SCH (21:11)
[2023-07-25] MEDS: Atorvastatin Calcium 40 MG TAB PO SCH (21:12)
[2023-07-25] MEDS: Losartan 25 MG TAB PO SCH (21:13)
[2023-07-25] MEDS: Citalopram 20 MG TAB PO SCH (21:13)
[2023-07-26] MEDS: HYDROcodone/Acetaminophen 10/325 mg Tablet PO PRN ×4 (02:51→22:00)
[2023-07-26] MEDS: CEFAZOLIN 2 GM in Sodium Chloride 0.9% 100 ML IVPB SCH (03:00)
[2023-07-26] MEDS: NIFEdipine XL 60 MG ER.TAB PO SCH (09:49)
[2023-07-26] MEDS: Oxybutynin 5 MG TAB PO SCH ×2 (09:49→22:00)
[2023-07-26] MEDS: Aspirin 81 mg Enteric Coated Tablet PO SCH (09:49)
[2023-07-26] MEDS: Metoprolol Tartrate 25 MG TAB PO SCH ×2 (09:49→22:02)
[2023-07-26] MEDS: hydrALAZINE 25 MG TAB PO SCH ×3 (09:49→21:58)
[2023-07-26] MEDS: Multivit, Therapeutic 1 TAB PO SCH (09:49)
[2023-07-26] MEDS: Ranolazine 500 MG ER.TAB PO SCH ×2 (09:49→22:02)
[2023-07-26] MEDS: Docusate 100 MG CAP PO SCH ×2 (09:49→22:00)
[2023-07-26] MEDS: Icosapent Ethyl 1 GM CAPSULE PO SCH ×2 (09:50→22:03)
[2023-07-26] MEDS: HumuLIN 70/30 100 Unit/ml 10 ml Vial SC SCH ×2 (09:50→22:01)
[2023-07-26] MEDS: Sodium Chloride 0.9% 1,000 ML IV SCH ×2 (18:33→23:20)
[2023-07-26] MEDS: Citalopram 20 MG TAB PO SCH (22:00)
[2023-07-26] MEDS: Amitriptyline HCl 10 MG TAB PO SCH (22:00)
[2023-07-26] MEDS: Losartan 25 MG TAB PO SCH (22:01)
[2023-07-26] MEDS: Atorvastatin Calcium 40 MG TAB PO SCH (22:02)
[2023-07-27] MEDS: HYDROcodone/Acetaminophen 10/325 mg Tablet PO PRN ×3 (06:07→21:14)
[2023-07-27] MEDS: Docusate 100 MG CAP PO SCH ×2 (09:34→21:16)
[2023-07-27] MEDS: Oxybutynin 5 MG TAB PO SCH ×2 (09:34→21:15)
[2023-07-27] MEDS: Ranolazine 500 MG ER.TAB PO SCH ×2 (09:34→21:14)
[2023-07-27] MEDS: HumuLIN 70/30 100 Unit/ml 10 ml Vial SC SCH ×2 (09:35→21:15)
[2023-07-27] MEDS: NIFEdipine XL 60 MG ER.TAB PO SCH (09:35)
[2023-07-27] MEDS: Icosapent Ethyl 1 GM CAPSULE PO SCH ×2 (09:35→21:15)
[2023-07-27] MEDS: Multivit, Therapeutic 1 TAB PO SCH (09:35)
[2023-07-27] MEDS: Aspirin 81 mg Enteric Coated Tablet PO SCH (09:35)
[2023-07-27] MEDS: hydrALAZINE 25 MG TAB PO SCH ×3 (12:46→21:22)
[2023-07-27] MEDS: Metoprolol Tartrate 25 MG TAB PO SCH ×2 (12:46→21:15)
[2023-07-27] MEDS: Furosemide 20 MG TAB PO SCH (17:34)
[2023-07-27 17:48] VITALS: BMI 37.6
[2023-07-27] MEDS: Sodium Chloride 0.9% 1,000 ML IV SCH (17:55)
[2023-07-27] MEDS: Atorvastatin Calcium 40 MG TAB PO SCH (21:14)
[2023-07-27] MEDS: Amitriptyline HCl 10 MG TAB PO SCH (21:14)
[2023-07-27] MEDS: Citalopram 20 MG TAB PO SCH (21:15)
[2023-07-27] MEDS: Losartan 25 MG TAB PO SCH (21:22)
[2023-07-28] MEDS: Sodium Chloride 0.9% 1,000 ML IV SCH ×2 (01:19→14:46)
[2023-07-28] MEDS: HYDROcodone/Acetaminophen 10/325 mg Tablet PO PRN ×4 (01:22→14:32)
[2023-07-28] MEDS ORDERED: Ergocalciferol 1.25 MG(50,000 UNITS) CAP PO SCH (09:00)
[2023-07-28] MEDS: NIFEdipine XL 60 MG ER.TAB PO SCH (09:48)
[2023-07-28] MEDS: Docusate 100 MG CAP PO SCH (09:49)
[2023-07-28] MEDS: Ranolazine 500 MG ER.TAB PO SCH (09:49)
[2023-07-28] MEDS: HumuLIN 70/30 100 Unit/ml 10 ml Vial SC SCH (09:49)
[2023-07-28] MEDS: Oxybutynin 5 MG TAB PO SCH (09:49)
[2023-07-28] MEDS: Aspirin 81 mg Enteric Coated Tablet PO SCH (09:49)
[2023-07-28] MEDS: hydrALAZINE 25 MG TAB PO SCH ×2 (09:49→14:33)
[2023-07-28] MEDS: Metoprolol Tartrate 25 MG TAB PO SCH (09:49)
[2023-07-28] MEDS: Multivit, Therapeutic 1 TAB PO SCH (09:49)
[2023-07-28] MEDS: Icosapent Ethyl 1 GM CAPSULE PO SCH (09:49)
[2023-07-28 12:04] VITALS: TEMP 98.2
[2023-07-28 15:59] VITALS: BP 126/58
== END 2023-07-28 17:55 | DRG 520 ==
LOC: SDC 08:30 → SURG A 15:04 → OBSVTOIN 07-24 05:43
PROVIDERS: ADMIT Surgery; ATTEND Surgery
PROC: 0SB20ZZ Excision of Lumbar Vertebral Disc, Open Approach (ICD-10-PCS; principal; 2023-07-23)
PROC: 01NB0ZZ Release Lumbar Nerve, Open Approach (ICD-10-PCS; 2023-07-23)
PROC: 01NR0ZZ Release Sacral Nerve, Open Approach (ICD-10-PCS; 2023-07-23)
DX: M51.26 Other intervertebral disc displacement, lumbar region (principal); M48.062 Spinal stenosis, lumbar region with neurogenic claudication; M54.16 Radiculopathy, lumbar region; E66.9 Obesity, unspecified; I25.5 Ischemic cardiomyopathy; Z68.37 Body mass index [BMI] 37.0-37.9, adult; Z87.891 Personal history of nicotine dependence
CPT/HCPCS: 36415; 36416; 80048; 81003; 81015; 85025; 93970; 96374; 96375; 96376; A4314; G0378; J1100; J1170; J1815; J2272; J2405; J2704; J3010; J3370; J3490

== ENCOUNTER 2023-09-10 10:30 | Emergency (ER) | payer MEDICARE | END 2023-09-10 13:50 | disposition home or self-care (01) | LOC: ERS 10:30 | DX: S09.90XA Unspecified injury of head, initial encounter (principal); I25.10 Atherosclerotic heart disease of native coronary artery without angina pectoris; E11.9 Type 2 diabetes mellitus without complications; I10 Essential (primary) hypertension; E78.5 Hyperlipidemia, unspecified; Z87.891 Personal history of nicotine dependence; Z59.10 Inadequate housing, unspecified; Z59.6 Low income; Z56.0 Unemployment, unspecified; Z79.82 Long term (current) use of aspirin; Z79.899 Other long term (current) drug therapy; Z79.4 Long term (current) use of insulin; W19.XXXA Unspecified fall, initial encounter | CPT/HCPCS: 70450; 72125; 72131 ==

== ENCOUNTER 2025-01-18 07:20 | Day surgery (SDC) | payer MEDICARE ==
[2025-01-17 11:59] VITALS: BMI 36.8
[2025-01-18] MEDS ORDERED: PROPOFOL 20 ML ONE ×4 (07:54→09:30)
== END 2025-01-18 11:00 | disposition home or self-care (01) ==
LOC: SDC 07:20
PROVIDERS: ATTEND Internal Medicine Gastroenterology
PROC: 0DBN8ZZ Excision of Sigmoid Colon, Via Natural or Artificial Opening Endoscopic (ICD-10-PCS; principal; 2025-01-18)
PROC: 0DJ08ZZ Inspection of Upper Intestinal Tract, Via Natural or Artificial Opening Endoscopic (ICD-10-PCS; 2025-01-18)
DX: Z12.11 Encounter for screening for malignant neoplasm of colon (principal); D12.5 Benign neoplasm of sigmoid colon; I25.10 Atherosclerotic heart disease of native coronary artery without angina pectoris; I12.9 Hypertensive chronic kidney disease with stage 1 through stage 4 chronic kidney disease, or unspecified chronic kidney disease; N18.9 Chronic kidney disease, unspecified; E11.22 Type 2 diabetes mellitus with diabetic chronic kidney disease; E78.00 Pure hypercholesterolemia, unspecified; F32.A Depression, unspecified; Z85.038 Personal history of other malignant neoplasm of large intestine; Z95.1 Presence of aortocoronary bypass graft; Z87.891 Personal history of nicotine dependence; Z79.82 Long term (current) use of aspirin; Z79.02 Long term (current) use of antithrombotics/antiplatelets; Z79.899 Other long term (current) drug therapy
CPT/HCPCS: 43235; 45385; 82962; J2704; 36416; 88305